=== PATIENT | male | born 1935 | race Caucasian/White ===

== ENCOUNTER 2017-02-17 10:30 | Emergency (ER) | payer MEDICARE, OTHER ==
--- NOTE | 2017-02-17 12:31 | XRAY Preliminary Report ---
Exam: XR Thoracic Spine 2 View IMPRESSION: Degenerative changes. No acute disease. [facility] SITE ID: [id number]
--- NOTE | 2017-02-17 12:33 | XRAY Report ---
EXAM: THORACIC SPINE RADIOGRAPHY EXAM DATE: 02/17/2017 12:13 PM. CLINICAL HISTORY: Thoracic back pain after falling. COMPARISON: None. TECHNIQUE: 2 views. FINDINGS: Alignment: Minimal spinal curvature on frontal view. No listhesis. Bones: Osteopenia. No definite fracture or other bone lesion. Status post median sternotomy. Disks: Generalized disk space narrowing through the mid and lower thoracic levels with marginal osteo phytes. Soft Tissues: Calcified granuloma in left lung base. The visualized lungs and cardiomediastinal silho uette are otherwise unremarkable. IMPRESSION: Degenerative changes. No acute disease. [facility] Referring Provider Line: [phone] SITE ID: [id number]
--- NOTE | 2017-02-17 12:48 | ED Physician Documentation ---
PD HPI Fall - Stated complaint Stated Complaint: GLF/LEG AND BACK PX - Chief complaint Chief Complaint: General - History obtained from History obtained from: Patient - History of Present Illness Mechanism of injury: Tripped, Lost balance Fall distance: Standing position Where injury occurred: Home Quality of pain: Pain Worsens with: Movement Similar symptoms before: Has not had sx before - Additional information Additional information: The patient is an 81-year-old male who presents with back pain that started 2 days ago after he fell. He was carrying a concrete block when he stumbled causing his fall. He landed on to concrete sidewalk, impacting his right thigh. He denies hitting his head. He denies headache, neck pain, or hip pain. His pain is worse with movement. He denies history of similar symptoms in the past. His medications include Plavix. Review of Systems Constitutional: denies: Fever Ears: denies: Tinnitus/ringing Nose: denies: Congestion Cardiac: denies: Chest pain / pressure Respiratory: denies: Dyspnea, Cough GI: denies: Abdominal Pain, Nausea, Vomiting : denies: Dysuria Skin: reports: Other (Bruising right thigh.). denies: Rash Musculoskeletal: reports: Back pain. denies: Neck pain, Joint pain Neurologic: denies: Focal weakness, Numbness, Headache, Head injury PD PAST MEDICAL HISTORY - Past Medical History Cardiovascular: Coronary artery disease, [place], Other Respiratory: Asthma, Pneumonia Neuro: CVA Endocrine/Autoimmune: None GI: Colon polyps : Benign prostate hypertrophy HEENT: None Psych: Anxiety, Other Musculoskeletal: Osteoarthritis Derm: None, Other - Past Surgical History Past Surgical History: Yes General: Appendectomy, Colonoscopy Cardiovascular: CABG HEENT: Tonsil/Adenoidectomy Derm: Skin cancer surgery - Present Medications Home Medications: Ambulatory Orders Medication Instructions Recorded Confirmed Aspirin 325 mg PO DAILY 12/17/14 02/17/17 Cholecalciferol (Vitamin D3) 1,000 unit PO DAILY 12/17/14 02/17/17 [Vitamin D] Clopidogrel [Plavix] 75 mg PO DAILY 12/17/14 02/17/17 Simvastatin 40 mg PO DAILY 12/17/14 02/17/17 HYDROcod/ACETAM 5/325 [Vicodin 1 ea PO Q6H PRN #20 tablet 02/17/17 5/325] - Allergies Allergies/Adverse Reactions: Allergies Allergy/AdvReac Type Severity Reaction Status Date / Time OTC Cold Medicine AdvReac Severe Hallucinati Uncoded 02/17/17 10:38 ons Topical Cortisone AdvReac Intermediate Skin Uncoded 02/17/17 10:38 sensitivity - Social History Does the pt smoke?: No Smoking Status: Never smoker Does the pt drink ETOH?: Yes ETOH Use: Wine Does the pt have substance abuse?: No PD ED PE NORMAL - Vitals Vital signs reviewed: Yes (Borderline hypertension initially.) - General General: Alert and oriented X 3, Well developed/nourished - HEENT HEENT: Atraumatic, EOMI, Pharynx benign - Neck Neck: No bony TTP, No adenopathy, No JVD - Cardiac Cardiac: RRR - Respiratory Respiratory: No respiratory distress, Clear bilaterally - Abdomen Abdomen: Soft, Non tender - Back Back: No CVA TTP, Other (There is tenderness to palpation of the right lower posterior thoracic region, including lower posterior chest wall and parathoracic musculature. There is mild tenderness to palpation over the lower thoracic spinous processes. There is no ecchymosis or break in the integument.) - Derm Derm: No rash - Extremities Extremities: No edema, No calf tenderness / cord, Other (There is a large area of ecchymosis on the lateral aspect of the right mid thigh. There is no break in the integument, and no discomfort with range of motion of the knee or hip, including internal and external rotation of the hip. Distal neurovascular is intact. There is also small area of ecchymosis of the proximal left forearm, without bony tenderness or discomfort with supination or pronation of the forearm.) - Neuro Neuro: Alert and oriented X 3, No motor deficit, No sensory deficit, Normal speech Results - Vitals Vitals: Oxygen O2 Source [] Room air O2 Source [] Room air O2 Source Room air - Rads (name of study) Thoracic Spine xrays Radiology: Prelim report reviewed, EMP read contemporaneously, See rad report ( Degenerative changes. No acute disease.) PD MEDICAL DECISION MAKING - ED course Complexity details: reviewed results, re-evaluated patient, considered differential, d/w patient, d/w family ED course: The patient's presentation is significant for contusions to his back, right thigh, and left forearm, caused by trip and fall. There is no evidence of thoracic spine fracture on x-ray examination. I discussed with him and his the expected course of injury, symptomatic treatment and outpatient follow- up, as well as potentially worrisome signs or symptoms that should prompt reevaluation in the emergency department. He is being discharged with a prescription for Vicodin, 20 tablets. Departure - Departure Disposition: 01 Home, Self Care Clinical Impression: Contusion of thoracic wall Qualifiers: Encounter type: initial encounter Contusion of thoracic wall detail: back wall of thorax Laterality: right Qualified Code(s): S20.221A - Contusion of right back wall of thorax, initial encounter Contusion of right thigh Qualifiers: Encounter type: initial encounter Qualified Code(s): S70.11XA - Contusion of right thigh, initial encounter Contusion of left forearm Qualifiers: Encounter type: initial encounter Qualified Code(s): S50.12XA - Contusion of left forearm, initial encounter Condition: Stable Instructions: ED Contusion Soft Tissue Follow-Up: Amanda Echevarria PA [Primary Care Provider] - Prescriptions: HYDROcod/ACETAM 5/325 [Vicodin 5/325] 1 ea PO Q6H PRN #20 tablet PRN Reason: Pain Comments: Apply icepack to the sore areas intermittently for the next 3 days. You can use low-dose Vicodin, one half to one tablet, every 6-8 hours if needed for pain. If not using Vicodin you can use Tylenol for pain, but avoid using additional Tylenol if using Vicodin, because Vicodin has Tylenol in it. Follow up with your primary physician within one week. Call to schedule an appointment. Return to the emergency department if you develop increasing pain, difficulty breathing, or otherwise worsening symptoms. Discharge Date/Time: 02/17/17 13:00
[2017-02-17 13:02] VITALS: BP 154/69
== END 2017-02-17 13:00 | disposition home or self-care (01) ==
LOC: ED 10:30
DX: S20.221A Contusion of right back wall of thorax, initial encounter (principal); S70.11XA Contusion of right thigh, initial encounter; S50.12XA Contusion of left forearm, initial encounter; W01.0XXA Fall on same level from slipping, tripping and stumbling without subsequent striking against object, initial encounter; Y93.89 Activity, other specified; Y92.009 Unspecified place in unspecified non-institutional (private) residence as the place of occurrence of the external cause; I25.10 Atherosclerotic heart disease of native coronary artery without angina pectoris; I25.2 Old myocardial infarction; Z95.1 Presence of aortocoronary bypass graft; Z86.73 Personal history of transient ischemic attack (TIA), and cerebral infarction without residual deficits; Z79.02 Long term (current) use of antithrombotics/antiplatelets; Z79.82 Long term (current) use of aspirin
CPT/HCPCS: 72070; 99283

== ENCOUNTER 2018-01-26 10:07 | Outpatient (CLI) | payer MEDICARE, OTHER ==
--- NOTE | 2018-01-26 12:06 | XRAY Report ---
TWO VIEW CHEST: 01/26/2018 CLINICAL INDICATION: Cough, upper respiratory infection. FINDINGS: Frontal and lateral views of the chest demonstrate changes of previous cardiac surgery. The cardiac silhouette is not enlarged. Calcifications of old granulomatous disease are noted. Linear scarring or atelectasis is present in the mid lungs. No effusion or pneumothorax is seen. IMPRESSION: POSTOPERATIVE CHANGES. NO EVIDENCE OF ACUTE CARDIOPULMONARY DISEASE. TD: 01/26/2018 12:04
== END 2018-01-26 10:08 | disposition home or self-care (01) ==
LOC: DI.S 10:07
PROVIDERS: ATTEND Nurse Practitioner Family
DX: R05 Cough (principal)
CPT/HCPCS: 71046

== ENCOUNTER 2018-03-30 08:37 | Day surgery (SDC) | payer MEDICARE, OTHER ==
[~2018-03-30 08:37] MED LIST: BRIMONIDINE 0.2% OPHTH DROPS 5 ML ONE; BSS/LIDOCAINE/EPINEPHRINE 1 ML SYRINGE ONE; EPINEPHrine 1 MG/ML AMP ONE; TIMOLOL 0.5% OPHTH DROPS ONE; TRIAMCIN/MOXIFLOX OPHTHALMIC 0.6 ML VIAL IO ONE; VANCOMYCIN OPHTHALMI 8MG/0.8ML 8 MG/0.8 ML SYRINGE IO ONE
[2018-03-30] MEDS ORDERED: BRIMONIDINE 0.2% OPHTH DROPS 5 ML OPTH ONE (09:00)
[2018-03-30] MEDS ORDERED: EPINEPHrine 1 MG/ML AMP IVP ONE (09:00)
[2018-03-30] MEDS ORDERED: CHONDR SULF/HYALURONATE SYRINGE IO ONE (09:00)
[2018-03-30] MEDS ORDERED: TRIAMCIN/MOXIFLOX/VANCO 1 ML VIAL IO ONE (09:00)
[2018-03-30] MEDS ORDERED: TIMOLOL 0.5% OPHTH DROPS OPTH ONE (09:00)
[2018-03-30] MEDS ORDERED: BSS/LIDOCAINE/EPINEPHRINE 1 ML SYRINGE IO ONE (09:00)
[2018-03-30] MEDS ORDERED: PROPARACAINE 0.5% OPHTH DROPS 15 ML LEFTEYE ONE ×2 (09:00→09:15)
[2018-03-30] MEDS ORDERED: LACTATED RINGERS 500 ML IV ONE (09:03)
[2018-03-30] MEDS ORDERED: KETOROLAC 0.45% OPHTH DROPS LEFTEYE ONE (09:15)
[2018-03-30] MEDS ORDERED: CYCLOPENTOLATE 1% OPHTH DROPS 2 ML LEFTEYE ONE (09:15)
[2018-03-30] MEDS ORDERED: PHENYLEPHRINE 2.5% OPHTH 2 ML DROPS LEFTEYE ONE (09:15)
[2018-03-30] MEDS ORDERED: MIDAZOLAM 2 MG/2 ML VIAL IVP ONE (10:00)
[2018-03-30 10:15] VITALS: BP 117/58
--- NOTE | 2018-03-30 11:36 | OPERATIVE REPORT ---
DATE OF SERVICE: 03/30/2018 Physician: Carlos Guillory MD DATE OF SURGERY: 03/30/2018 PREOPERATIVE DIAGNOSIS: Visually significant cataract, left eye. This was his first cataract surgery. POSTOPERATIVE DIAGNOSIS: Visually significant cataract, left eye. This was his first cataract surgery. NAME OF PROCEDURE: Phacoemulsification with posterior chamber intraocular lens implant, left eye. SURGEON: Carlos Guillory MD ANESTHESIA: Monitored anesthesia care. COMPLICATIONS: None. OPERATIVE INDICATIONS: This is an 82-year-old man with progressive vision loss in the left eye due to 2-3+ nuclear sclerotic cataract. Best corrected visual acuity was 20/50 with glare to 20/400 in the left eye. Indications for surgery are overall decrease in vision, difficulty seeing words on a computer screen, difficulty reading, difficulty seeing words and closed captions, game scores on TV, difficulty seeing street signs, difficulty driving in low light or at night. He was consented at length concerning risks and benefits of cataract surgery, and after, he expressed a desire to proceed with surgery. OPERATIVE PROCEDURE: The patient was taken into OR #3 and placed under monitored anesthesia care. Surgical timeout was conducted confirming correct patient, correct procedure, and correct surgical site. He was given topical anesthesia and prepped and draped in usual sterile fashion. The eye was entered at the 6 and 3 o'clock positions. Intracameral Shugarcaine was injected into the anterior chamber, followed by Viscoat. A continuous-tear curvilinear capsulorrhexis was performed. The nucleus was hydrodissected and phacoemulsified. The cortex was evacuated using automated infusion and aspiration. Provisc was injected in the capsular bag, and a 12.5 diopter intraocular lens was inserted in the bag. Approximately 0.9 mL of a mixture of triamcinolone, moxifloxacin and vancomycin was injected subconjunctivally in the superior quadrant for infection and inflammation prophylaxis. I and A was used to evacuate the viscoelastic material. The eye was inflated to physiologic pressure with balanced salt solution, and found to be watertight. The patient was taken from the operating room in good condition and given postop instructions. TD: 03/30/2018 10:19
== END 2018-03-30 08:38 | disposition home or self-care (01) ==
LOC: SDS 08:37
PROVIDERS: ATTEND Ophthalmology
PROC: 08RK3JZ Replacement of Left Lens with Synthetic Substitute, Percutaneous Approach (ICD-10-PCS; principal; 2018-03-30 09:30)
DX: H25.12 Age-related nuclear cataract, left eye (principal); I10 Essential (primary) hypertension; Z79.02 Long term (current) use of antithrombotics/antiplatelets; Z79.82 Long term (current) use of aspirin
CPT/HCPCS: 66984; A9270; V2632

== ENCOUNTER 2018-05-04 08:38 | Day surgery (SDC) | payer MEDICARE, OTHER ==
[~2018-05-04 08:38] MED LIST changes: +CYCLOPENTOLATE 1% OPHTH DROPS 2 ML ONE; +KETOROLAC 0.45% OPHTH DROPS ONE; +PHENYLEPHRINE 2.5% OPHTH 2 ML DROPS ONE; +PROPARACAINE 0.5% OPHTH DROPS 15 ML ONE
[2018-05-04] MEDS ORDERED: KETOROLAC 0.45% OPHTH DROPS LEFTEYE ONE (09:33)
[2018-05-04] MEDS ORDERED: PROPARACAINE 0.5% OPHTH DROPS 15 ML LEFTEYE ONE (09:33)
[2018-05-04] MEDS ORDERED: CYCLOPENTOLATE 1% OPHTH DROPS 2 ML LEFTEYE ONE (09:33)
[2018-05-04] MEDS ORDERED: PHENYLEPHRINE 2.5% OPHTH 2 ML DROPS LEFTEYE ONE (09:33)
--- NOTE | 2018-05-04 09:38 | ANESTHESIA ---
Pre-Anesthesia VS, & Labs - Diagnosis Right nuclear sclerotic cataract - Procedure Right eye extraction of cataract with intraocular lens implant Vital Signs: Temp Pulse Resp BP Pulse Ox 36.0 C L 16 115/90 H 100 05/04/18 09:26 05/04/18 09:26 05/04/18 09:26 05/04/18 09:26 pulse 56 Height 5 ft 10 in Weight (kg) 76.2 kg Body Mass Index 23.6 - NPO >8 hours - Is Patient ?: No Home Medications and Allergies Home Medications: Ambulatory Orders Medication Instructions Recorded Confirmed Aspirin 325 mg PO DAILY 12/17/14 05/03/18 Cholecalciferol (Vitamin D3) 1,000 unit PO DAILY 12/17/14 05/03/18 [Vitamin D] Clopidogrel [Plavix] 75 mg PO DAILY 12/17/14 05/03/18 Simvastatin 40 mg PO DAILY 12/17/14 05/03/18 Allergies/Adverse Reactions: Allergies Allergy/AdvReac Type Severity Reaction Status Date / Time No Known Drug Allergies Allergy Verified 03/29/18 14:14 Anes History & Medical History - Anesthetic History Anesthesia Complications: reports: No previous complications Family history of Anesthesia Complications: Denies Family history of Malignant Hyperthermia: Denies - Airway/Dental Dental: Poor dentition Neck Mobility: Normal Mallampati classification: IV Thyromental Distance: 4-6 cm - Medical History Cardiovascular: reports: Coronary artery disease, Arrhythmia Pulmonary: reports: None Gastrointestinal: reports: None Urinary: reports: None Neuro: reports: CVA (poor balance) Musculoskeletal: reports: Osteoarthritis Endocrine/Autoimmune: reports: None Blood Disorders: reports: None Skin: reports: None Smoking Status: Former smoker (quit 45 years ago) - Surgical History General: Appendectomy, Other (jose hernia repair) Eyes Ears Nose Throat (EENT): Tonsil/Adenoidectomy Cardiothoracic: CABG Urologic: Prostatic surgery Dermatologic: Skin cancer surgery Exam General: Alert, Oriented x3, Cooperative, No acute distress Plan Anesthesia Type: MAC Consent for Operative Procedure(s) Verified and Reviewed: Yes Code Status: Attempt Resuscitation ASA classification: 3-Severe systemic disease Is this case an emergency?: No
[2018-05-04] MEDS ORDERED: LACTATED RINGERS 500 ML IV ONE ×2 (09:42→10:16)
[2018-05-04] MEDS ORDERED: BRIMONIDINE 0.2% OPHTH DROPS 5 ML OPTH ONE (10:00)
[2018-05-04] MEDS ORDERED: MIDAZOLAM 2 MG/2 ML VIAL IVP ONE (10:01)
[2018-05-04] MEDS ORDERED: EPINEPHrine 1 MG/ML AMP IR ONE (10:01)
[2018-05-04] MEDS ORDERED: CHONDR SULF/HYALURONATE SYRINGE IO ONE (10:01)
[2018-05-04] MEDS ORDERED: BSS/LIDOCAINE/EPINEPHRINE 1 ML SYRINGE IO ONE (10:02)
[2018-05-04] MEDS ORDERED: PROPARACAINE 0.5% OPHTH DROPS 15 ML RIGHTEYE ONE (10:02)
[2018-05-04] MEDS ORDERED: TIMOLOL 0.5% OPHTH DROPS OPTH ONE (10:02)
[2018-05-04 10:31] VITALS: BP 112/50
--- NOTE | 2018-05-04 10:59 | OPERATIVE REPORT ---
DATE OF SERVICE: 05/04/2018 Physician: Carlos Guillory MD PREOPERATIVE DIAGNOSIS: Visually significant cataract, right eye. Cataract surgery was performed on the left eye on 30 March 2018. POSTOPERATIVE DIAGNOSIS: Visually significant cataract, right eye. Cataract surgery was performed on the left eye on 30 March 2018. PROCEDURE: Phacoemulsification with posterior chamber intraocular lens implant, right eye. SURGEON: Carlos Guillory MD ANESTHESIA: Monitored anesthesia care. COMPLICATIONS: None. OPERATIVE INDICATIONS: This is an 82-year-old man with progressive vision loss in the right eye due to 2-3+ nuclear sclerotic cataract. Best corrected visual acuity was 20/25 with glare to 20/400 in the right eye. INDICATIONS FOR SURGERY: Overall decrease in vision, difficulty seeing words on a computer screen, difficulty seeing words, closed caption, or game scores on TV; difficulty seeing street signs, difficulty seeing in low light or at night. He was consented at length concerning risks and benefits of cataract surgery, after which he expressed a desire to proceed with surgery. OPERATIVE PROCEDURE: The patient was taken to OR #3 and placed under monitored anesthesia care. A surgical timeout was conducted confirming the correct patient, correct procedure, and correct surgical site. He was given topical anesthesia and then prepped and draped in the usual sterile fashion. The eye was entered at the 12 and 9 o'clock positions. Intracameral Shugarcaine was injected into the anterior chamber, followed by Viscoat. A continuous-tear curvilinear capsulorrhexis was performed. Nucleus was hydrodissected and phacoemulsified. Cortex was evacuated using automated infusion and aspiration. Provisc was injected in the capsular bag, and a 16.0 diopter intraocular lens was inserted into the bag. Approximately 0.9 mL of a mixture of triamcinolone, moxifloxacin, and vancomycin was injected subconjunctivally in the superior quadrant for infection and inflammation prophylaxis. I and A was used to evacuate the viscoelastic materials. The eye inflated to physiologic pressure using balanced salt solution and found to be watertight. The patient was taken from the operating room in good condition and given postop instructions. TD: 05/04/2018 10:20
== END 2018-05-04 08:39 | disposition home or self-care (01) ==
LOC: SDS 08:38
PROVIDERS: ATTEND Ophthalmology
PROC: 08RJ3JZ Replacement of Right Lens with Synthetic Substitute, Percutaneous Approach (ICD-10-PCS; principal; 2018-05-04 09:30)
DX: H25.11 Age-related nuclear cataract, right eye (principal); I10 Essential (primary) hypertension; Z86.73 Personal history of transient ischemic attack (TIA), and cerebral infarction without residual deficits; Z87.891 Personal history of nicotine dependence; I25.10 Atherosclerotic heart disease of native coronary artery without angina pectoris; Z95.1 Presence of aortocoronary bypass graft; I49.9 Cardiac arrhythmia, unspecified
CPT/HCPCS: 66984; A9270; J3490; V2632

== ENCOUNTER 2018-08-04 15:22 | Outpatient (CLI) | payer MEDICARE, OTHER ==
--- NOTE | 2018-08-04 16:02 | XRAY Report ---
Reason: HYPER FLEXION INJURY Procedure Date: 08/04/2018 Accession Number: [id number] / [id number] Procedure: XR - Knee 3 View LT CPT Code: FULL RESULT: EXAM: LEFT KNEE RADIOGRAPHY EXAM DATE: 08/04/2018 03:56 PM. CLINICAL HISTORY: HYPER FLEXION INJURY. Pain COMPARISON: None. TECHNIQUE: 3 views. FINDINGS: Bones: No fractures or bone lesions. Quadriceps tendon insertion calcification. Joints: Medial and lateral meniscal chondrocalcinosis. No effusion. No subluxations. Minimal patellar articular surface spurring. Soft Tissues: Surgical clips. IMPRESSION: Mild degenerative change left knee radiography without superimposed acute findings. [facility]
== END 2018-08-04 15:23 | disposition home or self-care (01) ==
LOC: DI 15:22
PROVIDERS: ATTEND Family Medicine
DX: S89.82XA Other specified injuries of left lower leg, initial encounter (principal); M17.11 Unilateral primary osteoarthritis, right knee

== ENCOUNTER 2022-10-10 10:22 | Outpatient (CLI) | payer MEDICARE | END 2022-10-10 10:23 | disposition EMS.NT | LOC: EMS 10:22 | DX: R53.83 Other fatigue (principal); R53.1 Weakness ==

== ENCOUNTER 2023-06-04 10:50 | Emergency (ER) | payer MEDICARE, OTHER ==
--- NOTE | 2023-06-04 11:16 | ED Physician Documentation ---
PD HPI Fall - Stated complaint Stated Complaint: GLF - Chief complaint Chief Complaint: Trauma Ch/Bk - History obtained from History obtained from: Patient - History of Present Illness Mechanism of injury: Syncope, Unknown Fall distance: Standing position Where injury occurred: Other (parking lot, waiting for his ride to arrive) Timing - onset: How many days ago (3) Injury(ies) location: Head, Chest (left posterolateral), Back (He is not sure of the reason for falling/fainting. He was in the parking lot waiting for a ride to arrive. He was next to where being on the ground. He had some pain in the back of his head. Some in his right lumbar area. Continued with back spasms and pain and noted bruising develop.) Quality of pain: Aching Associated symptoms: No: AMS, Neck pain, Weakness, Paresthesias Symptoms improve with: Rest Worsens with: Movement (spasms and pain in scapular and lumbar back areas.) Contributing factors: Anticoagulated (aspirin and plavix antiplatelet agents.). No: Intoxicated Similar symptoms before: Has not had sx before Recently seen: Not recently seen Review of Systems Constitutional: denies: Fever, Chills Nose: denies: Rhinorrhea / runny nose, Congestion Throat: denies: Sore throat Cardiac: denies: Palpitations, Pedal edema, Calf pain Respiratory: denies: Dyspnea, Cough Skin: reports: Other (bruising noted right flank/low back) Musculoskeletal: reports: Back pain. denies: Neck pain Neurologic: reports: Syncope (just the episode few days ago. Has not had lightheaded episodes otherwise.). denies: Focal weakness, Numbness Endocrine: denies: Weight loss PD PAST MEDICAL HISTORY - Past Medical History Cardiovascular: Coronary artery disease, Arrhythmia Respiratory: None Neuro: CVA (poor balance) Endocrine/Autoimmune: None GI: None : None HEENT: Chronic vision loss Psych: Anxiety Musculoskeletal: Osteoarthritis Derm: None - Past Surgical History Past Surgical History: Yes General: Appendectomy, Other (jose hernia repair) Cardiovascular: CABG HEENT: Tonsil/Adenoidectomy Derm: Skin cancer surgery - Present Medications Home Medications: Ambulatory Orders Medication Instructions Recorded Confirmed Aspirin 0.5 tab PO DAILY 12/17/14 06/04/23 Cholecalciferol (Vitamin D3) 1,000 unit PO DAILY 12/17/14 06/04/23 [Vitamin D] Clopidogrel [Plavix] 75 mg PO DAILY 12/17/14 06/04/23 Simvastatin 40 mg PO DAILY 12/17/14 06/04/23 HYDROcod/ACETAM 5/325 [Pinon 5/325] 1 ea PO Q6H PRN #20 tablet 06/04/23 Lidocaine Patch 5% [Lidoderm Patch] 1 patch TOP DAILY PRN #10 patch 06/04/23 methocarbamoL [Robaxin] 500 mg PO Q8H PRN #20 tablet 06/04/23 - Allergies Allergies/Adverse Reactions: Allergies Allergy/AdvReac Type Severity Reaction Status Date / Time No Known Drug Allergies Allergy Verified 06/04/23 11:11 - Social History Does the pt smoke?: No Smoking Status: Former smoker (quit 45 years ago) Does the pt drink ETOH?: Yes Does the pt have substance abuse?: No PD ED PE NORMAL - Vitals Vital signs reviewed: Yes - General General: Alert and oriented X 3, Well developed/nourished, Other (appears in pain with low back and upper back movements. ) - HEENT HEENT: Other (mild tender back of head) - Neck Neck: Supple, no meningeal sign, No bony TTP, No adenopathy - Cardiac Cardiac: No murmur. No: RRR (regular with occasional pause/skip, bradycardic 38-60 ranging. ) - Respiratory Respiratory: No respiratory distress, Clear bilaterally - Abdomen Abdomen: Soft, Non tender - Back Back: No CVA TTP, Other (some tender mid scapular area back, Also noted is some purple bruising noted in the right iliac crest and lower lumbar area.) - Derm Derm: Normal color, Warm and dry - Extremities Extremities: Normal ROM s pain, No edema, No calf tenderness / cord - Neuro Neuro: Alert and oriented X 3, No motor deficit, Normal speech Results - Vitals Vitals: Vital Signs - 24 hr 06/04/23 06/04/23 06/04/23 11:01 13:56 15:17 Temperature 36.4 C L Heart Rate 57 L 51 L 42 L Respiratory 13 16 12 Rate Blood Pressure 134/47 H 162/62 H 139/108 H O2 Saturation 98 99 96 If not protocol : Oxygen Flow, liters/minute 06/04/23 06/04/23 06/04/23 18:44 18:45 18:50 Temperature Heart Rate 42 L 38 L 40 L Respiratory 18 Rate Blood Pressure 151/48 H O2 Saturation 95 84 L 91 L If not protocol 2 : Oxygen Flow, liters/minute 06/04/23 06/04/23 06/04/23 19:10 19:17 19:27 Temperature Heart Rate 35 L 34 L 36 L Respiratory 15 Rate Blood Pressure 143/54 H O2 Saturation 92 If not protocol 2 : Oxygen Flow, liters/minute 06/04/23 06/04/23 06/04/23 19:37 20:12 20:42 Temperature Heart Rate 43 L 46 L 43 L Respiratory 15 16 15 Rate Blood Pressure 147/55 H 153/63 H 160/56 H O2 Saturation 94 95 95 If not protocol 2 2 2 : Oxygen Flow, liters/minute 06/04/23 06/04/23 21:30 22:00 Temperature Heart Rate 43 L 46 L Respiratory 13 14 Rate Blood Pressure 146/53 H 156/54 H O2 Saturation 96 99 If not protocol : Oxygen Flow, liters/minute Oxygen O2 Source [] Room air O2 Source [] Room air O2 Source Room air - EKG (time done) 12:28 EKG releavant findings:: EKG personally interpreted by author of this note. Relevant findings are: Rate: Rate (enter#) (46) Rhythm: Sinus bradycardia [place]: Normal Intervals: Prolonged MS, 2nd degree AVB type 2 Ischemia: Normal ST segments. No: ST elevation c/w ischemia, ST depression Compare to prior EKG: Old EKG unavailable - Labs Labs: Laboratory Tests 06/04/23 06/04/23 06/04/23 11:10 11:10 11:10 WBC 8.6 RBC 4.36 L Hgb 13.0 L Hct 39.6 L MCV 90.8 MCH 29.8 MCHC 32.8 RDW 13.2 Plt Count 301 MPV 9.3 Neut # (Auto) 6.1 Lymph # (Auto) 1.4 L [place] # (Auto) 0.9 Eos # (Auto) 0.2 Baso # (Auto) 0.0 Absolute Nucleated RBC 0.00 Nucleated RBC % 0.0 Sodium 137 Potassium 4.0 Chloride 103 Carbon Dioxide 27 Anion Gap 7.0 BUN 14 Creatinine 0.8 Estimated GFR (MDRD) 91 Glucose 151 H Calcium 9.5 Magnesium 1.9 Total Bilirubin 0.8 AST 20 ALT 15 Alkaline Phosphatase 83 Troponin I High Sens 10.8 B-Natriuretic Peptide Total Protein 6.9 Albumin 4.2 Globulin 2.7 Albumin/Globulin Ratio 1.6 Lipase 32 TSH 06/04/23 06/04/23 11:10 11:10 WBC RBC Hgb Hct MCV MCH MCHC RDW Plt Count MPV Neut # (Auto) Lymph # (Auto) [place] # (Auto) Eos # (Auto) Baso # (Auto) Absolute Nucleated RBC Nucleated RBC % Sodium Potassium Chloride Carbon Dioxide Anion Gap BUN Creatinine Estimated GFR (MDRD) Glucose Calcium Magnesium Total Bilirubin AST ALT Alkaline Phosphatase Troponin I High Sens B-Natriuretic Peptide 303 H Total Protein Albumin Globulin Albumin/Globulin Ratio Lipase TSH 1.32 - Rads (name of study) head CT Relevant Findings:: Prelim report reviewed (no acute ICH nor acute process), EMP independent interpretation of test chest CT Relevant Findings:: Prelim report reviewed, Discussed with rads (T8 compression fracture without notable displacement. Incidental 4 cm mass in the right upper lobe.), EMP independent interpretation of test abd/pelvic CT Relevant Findings:: Prelim report reviewed (No acute injury noted. No acute organ injury or abnormality.), EMP independent interpretation of test (In the soft tissue of the right lower back is some inflammatory changes without any hematoma nor fluid collection. This is consistent with his contused area.) PD Medical Decision Making - ED course Complexity details: reviewed results, re-evaluated patient (The patient remains feeling well. Blood pressure is adequate. His heart rate has trended down to now ranging from 35-50. He still is without any symptoms while lying sitting up on the cart. However the downward trend is concerning. Pacer pads were placed. Dopamine low dose for HR, up to 45-55.), considered differential (Recent apparent syncope several days ago with injury of contusion in the right lumbar area and a T8 compression fracture. We can treat these with pain medications. However he is in a second-degree type II heart block with relative bradycardia which is concerning in the context of his recent syncop), d/w patient, d/w security consultant (Dr. Gillespie, Cardiology at [facility], Who felt the patient should be treated with cardiac evaluation and likely pacemaker. Waiting on bed availability. Apparently there are beds available and will need to talk to the hospitalist.) ED course: he has varying heart rate initially mainly 50s down to 48, but then was slower dips down to 35 at times. He felt okay with it. Telemetry strips and repeat ECG showing more clearly Mobitz 2 heart block. I presume this relates to the recent syncopal episode 3 days ago. He has not had repeated syncope/near syncope since. However clearly in heart block with recent syncope. Not on meds to cause it. check lytes and troponin. Will need to consult cardiology for consideration of pacemaker. Pt advised and is agreeable. Heart rate was generally slower range from 33-45. BP still adequate. [place] was concerning of slow trend. So I started dopamine drip low dose to titrate up for stimulated HR of above 45. Dopamine suggested, as well as epi or dobutamine, in UpToDate reference on heart block treatment. Ay vhange pf shift, still pending bed avaialbe at [facility] (they anticipated discharges this afternoon). Cardiology already consulted and deferred to hospitalist. - Critical Care Time(min): 50 Comments: 2nd degree heart block. Evaluate rhythm. Placed on dopaimine drip for improved heart rate. Needed close monitoring. Pacer pads on patient ready if use needed. Departure - Departure Disposition: 02 Transfer Acute Care Hosp Clinical Impression: Mass of right lung, Cardiac syncope, Mobitz (type) II atrioventricular block Thoracic compression fracture Qualifiers: Encounter type: initial encounter Thoracic vertebra fracture level: T8 Qualified Code(s): S22.060A - Wedge compression fracture of T7-T8 vertebra, init ial encounter for closed fracture Lumbar contusion Qualifiers: Encounter type: initial encounter Qualified Code(s): S30.0XXA - Contusion of lower back and pelvis, initial encounter Condition: Stable Record reviewed to determine appropriate education?: Yes Instructions: ED Fx Comp Vertebral Prescriptions: Lidocaine Patch 5% [Lidoderm Patch] 1 patch TOP DAILY PRN #10 patch PRN Reason: pain HYDROcod/ACETAM 5/325 [Pinon 5/325] 1 ea PO Q6H PRN #20 tablet PRN Reason: Pain methocarbamoL [Robaxin] 500 mg PO Q8H PRN #20 tablet PRN Reason: Spasms Forms: PCP List
[2023-06-04] MEDS ORDERED: iohexoL-300 100 ML VIAL ONE (11:42)
[2023-06-04 11:47] LABS: BASOPHILS % (AUTO) 0.5 %; EOSINOPHILS # (AUTO) 0.2 10^3/uL (0.0-0.7); EOSINOPHILS % (AUTO) 1.7 %; HCT - HEMATOCRIT 39.6 % (42.0-52.0); LYMPHOCYTES # (AUTO) 1.4 10^3/uL (1.5-3.5); MEAN CORPUSCULAR HEMOGLOBIN 29.8 pg (27.0-31.0); MEAN CORPUSCULAR HGB CONC 32.8 g/dL (32.0-36.0); MEAN CORPUSCULAR VOLUME 90.8 fL (80.0-94.0); MEAN PLATELET VOLUME 9.3 fL (7.4-11.4); MONOCYTES # (AUTO) 0.9 10^3/uL (0.0-1.0); MONOCYTES % (AUTO) 9.9 %; NEUTROPHILS # (AUTO) 6.1 10^3/uL (1.5-6.6); NEUTROPHILS % (AUTO) 71.4 %; PLT - PLATELET COUNT 301 10^3/uL (130-450); RED BLOOD COUNT 4.36 10^6/uL (4.70-6.10); RED CELL DISTRIBUTION WIDTH 13.2 % (12.0-15.0); WHITE BLOOD COUNT 8.6 x10^3/uL (4.8-10.8)
--- OUTSIDE RECORDS SUMMARY | 2023-06-04 11:48 | EXTERNAL MEDICAL SUMMARY RPT | Continuity of Care Document ---
Author Name Unknown Address [address] [place] [address] Phone Organization [place] Address [address] [place] [address] Phone Care Team Providers Care Manager Appointment Name Role Phone Unavailable Unavailable Unavailable Afua Azevedo Pa-C Unavailable Unavailable Medications date description facility 2023-03-18 00:00 [facility]ol [facility] [place] 2023-03-21 00:00 atenolol [facility] [place] 2023-03-17 00:00 ASPIRIN [facility] [place] 2023-03-18 00:00 ASPIRIN [facility] [place] 2023-03-21 00:00 ASPIRIN [facility] [place] 2023-03-17 00:00 amoxicillin-pot clavulanate [facility] [place] 2023-03-17 00:00 amoxicillin-pot clavulanate [facility] [place] 2023-03-17 00:00 ASPIRIN [facility] [place] 2023-03-18 00:00 ASPIRIN [facility] [place] 2023-03-21 00:00 ASPIRIN [facility] [place] 2023-03-18 00:00 aspirin [facility] [place] 2023-03-21 00:00 aspirin [facility] [place] 2023-03-18 00:00 atenolol [facility] [place] 2023-03-21 00:00 atenolol [facility] [place] 2023-03-18 00:00 simvastatin [facility] [place] 2023-03-21 00:00 simvastatin [facility] [place] 2023-03-18 00:00 atenolol [facility] [place] 2023-03-21 00:00 atenolol [facility] [place] 2023-03-17 00:00 ASPIRIN [facility] [place] 2023-03-18 00:00 ASPIRIN [facility] [place] 2023-03-21 00:00 ASPIRIN [facility] [place] 2023-03-18 00:00 aspirin [facility] [place] 2023-03-21 00:00 aspirin [facility] [place] 2023-03-18 00:00 clopidogrel [facility] [place] 2023-03-21 00:00 clopidogrel [facility] [place] 2023-03-18 00:00 atenolol [facility] [place] 2023-03-21 00:00 atenolol [facility] [place] 2023-03-18 00:00 escitalopram oxalate [facility] [place] 2023-03-21 00:00 escitalopram oxalate [facility] [place] 2023-03-18 00:00 simvastatin [facility] [place] 2023-03-21 00:00 simvastatin [facility] [place] 2023-03-18 00:00 aspirin [facility] [place] 2023-03-21 00:00 aspirin [facility] [place] 2023-03-18 00:00 clopidogrel [facility] [place] 2023-03-21 00:00 clopidogrel [facility] [place] 2023-03-17 00:00 amoxicillin-pot clavulanate [facility] [place] 2023-03-18 00:00 simvastatin [facility] [place] 2023-03-21 00:00 simvastatin [facility] [place] 2023-03-18 00:00 escitalopram oxalate [facility] [place] 2023-03-21 00:00 escitalopram oxalate [facility] [place] 2023-03-18 00:00 clopidogrel [facility] [place] 2023-03-21 00:00 clopidogrel [facility] [place] 2023-03-17 00:00 ASPIRIN [facility] [place] 2023-03-18 00:00 ASPIRIN [facility] [place] 2023-03-21 00:00 ASPIRIN [facility] [place] 2023-03-18 00:00 aspirin [facility] [place] 2023-03-21 00:00 aspirin [facility] [place] 2023-03-18 00:00 simvastatin [facility] [place] 2023-03-21 00:00 simvastatin [facility] [place] 2023-03-18 00:00 escitalopram oxalate [facility] [place] 2023-03-21 00:00 escitalopram oxalate [facility] [place] 2023-03-17 00:00 amoxicillin-pot clavulanate [facility] [place] 2023-03-18 00:00 escitalopram oxalate [facility] [place] 2023-03-21 00:00 escitalopram oxalate [facility] [place] 2023-03-18 00:00 clopidogrel [facility] [place] 2023-03-21 00:00 clopidogrel [facility] [place] Problems date description facility 2023-03-17 00:00 Rectal hemorrhage [facility] [place] 2023-03-17 00:00 Acute sinusitis [facility] [place] 2023-03-17 00:00 Other and unspecifie d malignant neoplasm of skin, site unspecified [facility] [place] 2023-03-17 00:00 Asthma [facility] [place] 2023-03-17 00:00 Childhood asthma [facility] [place] 2023-03-17 00:00 Disease of liver [facility] [place] 2023-03-17 00:00 Other and unspecified hyperlipi demia [facility] [place] 2023-03-17 00:00 Conjunctivitis, unspecified [facility] [place] 2023-03-17 00:00 Coronary atheroscler osis of unspecified type of vessel, [place] or graft [facility] [place] 2023-03-17 00:00 Sinoatrial node dysfunction [facility] [place] 2023-03-17 00:00 Extrinsic asthma, unspecified [facility] [place] 2023-03-17 00:00 Asthma, unspecified [facility] [place] 2023-03-17 00:00 Sinus bradycardia [facility] [place] 2023-03-17 00:00 Coronary arteriosclerosis [facility] [place] 2023-03-17 00:00 Unilateral or unspec ified inguinal hernia, without mention of obstruction or gangrene (not specified as recurrent) [facility] [place] 2023-03-17 00:00 Hyperlipidemia [facility] [place] 2023-03-17 00:00 Hemorrhage of rectum and anus [facility] [place] 2023-03-17 00:00 Other specified disorders of li yessica [facility] [place] 2023-03-17 00:00 Hypertrophy (benign) of prostate without urinary obstruction and other lower urinary tract (LUTS) [facility] [place] 2023-03-17 00:00 Bacterial sinusitis [facility] [place] 2023-03-17 00:00 Inguinal hernia with out obstruction AND without gangrene [facility] [place] 2023-03-17 00:00 Conjunctivitis [facility] [place] 2023-03-17 00:00 Hyperlipidemia, unspecified [facility] [place] 2023-03-17 00:00 Unspecified conjunctivitis [facility] [place] 2023-03-17 00:00 Atherosclerotic hear t disease of [place] coronary artery without angina pectoris [facility] [place] 2023-03-17 00:00 Acute sinusitis, unspecified [facility] [place] 2023-03-17 00:00 Chronic sinusitis, unspecified [facility] [place] 2023-03-17 00:00 Unspecified asthma, uncomplicat ed [facility] [place] 2023-03-17 00:00 Unilateral inguinal hernia, without obstruction or gangrene, not specified as recurrent [facility] [place] 2023-03-17 00:00 Hemorrhage of anus and rectum [facility] [place] 2023-03-17 00:00 Other specified diseases of megan er [facility] [place] 2023-03-17 00:00 Benign prostatic hyp erplasia without lower urinary tract symptoms [facility] [place] 2023-03-17 00:00 Bradycardia, unspecified [facility] [place] 2023-03-18 00:00 Rectal hemorrhage [facility] [place] 2023-03-18 00:00 Acute sinusitis [facility] [place] 2023-03-18 00:00 Other and unspecifie d malignant neoplasm of skin, site unspecified [facility] [place] 2023-03-18 00:00 Asthma [facility] [place] 2023-03-18 00:00 Childhood asthma [facility] [place] 2023-03-18 00:00 Disease of liver [facility] [place] 2023-03-18 00:00 Other and unspecified hyperlipi demia [facility] [place] 2023-03-18 00:00 Conjunctivitis, unspecified [facility] [place] 2023-03-18 00:00 Coronary atheroscler osis of unspecified type of vessel, [place] or graft [facility] [place] 2023-03-18 00:00 Sinoatrial node dysfunction [facility] [place] 2023-03-18 00:00 Extrinsic asthma, unspecified [facility] [place] 2023-03-18 00:00 Asthma, unspecified [facility] [place] 2023-03-18 00:00 Sinus bradycardia [facility] [place] 2023-03-18 00:00 Coronary arteriosclerosis [facility] [place] 2023-03-18 00:00 Unilateral or unspec ified inguinal hernia, without mention of obstruction or gangrene (not specified as recurrent) [facility] [place] 2023-03-18 00:00 Hyperlipidemia [facility] [place] 2023-03-18 00:00 Hemorrhage of rectum and anus [facility] [place] 2023-03-18 00:00 Other specified disorders of li yessica [facility] [place] 2023-03-18 00:00 Hypertrophy (benign) of prostate without urinary obstruction and other lower urinary tract (LUTS) [facility] [place] 2023-03-18 00:00 Inguinal hernia with out obstruction AND without gangrene [facility] [place] 2023-03-18 00:00 Conjunctivitis [facility] [place] 2023-03-18 00:00 Hyperlipidemia, unspecified [facility] [place] 2023-03-18 00:00 Unspecified conjunctivitis [facility] [place] 2023-03-18 00:00 Atherosclerotic hear t disease of [place] coronary artery without angina pectoris [facility] [place] 2023-03-18 00:00 Acute sinusitis, unspecified [facility] [place] 2023-03-18 00:00 Unspecified asthma, uncomplicat ed [facility] [place] 2023-03-18 00:00 Unilateral inguinal hernia, without obstruction or gangrene, not specified as recurrent [facility] [place] 2023-03-18 00:00 Hemorrhage of anus and rectum [facility] [place] 2023-03-18 00:00 Other specified diseases of megan er [facility] [place] 2023-03-18 00:00 Benign prostatic hyp erplasia without lower urinary tract symptoms [facility] [place] 2023-03-18 00:00 Bradycardia, unspecified [facility] [place] 2023-03-21 00:00 Rectal hemorrhage [facility] [place] 2023-03-21 00:00 Acute sinusitis [facility] [place] 2023-03-21 00:00 Other and unspecifie d malignant neoplasm of skin, site unspecified [facility] [place] 2023-03-21 00:00 Asthma [facility] [place] 2023-03-21 00:00 Childhood asthma [facility] [place] 2023-03-21 00:00 Disease of liver [facility] [place] 2023-03-21 00:00 Other and unspecified hyperlipi demia [facility] [place] 2023-03-21 00:00 Conjunctivitis, unspecified [facility] [place] 2023-03-21 00:00 Coronary atheroscler osis of unspecified type of vessel, [place] or graft [facility] [place] 2023-03-21 00:00 Sinoatrial node dysfunction [facility] [place] 2023-03-21 00:00 Extrinsic asthma, unspecified [facility] [place] 2023-03-21 00:00 Asthma, unspecified [facility] [place] 2023-03-21 00:00 Sinus bradycardia [facility] [place] 2023-03-21 00:00 Coronary arteriosclerosis [facility] [place] 2023-03-21 00:00 Unilateral or unspec ified inguinal hernia, without mention of obstruction or gangrene (not specified as recurrent) [facility] [place] 2023-03-21 00:00 Hyperlipidemia [facility] [place] 2023-03-21 00:00 Hemorrhage of rectum and anus [facility] [place] 2023-03-21 00:00 Other specified disorders of li yessica [facility] [place] 2023-03-21 00:00 Hypertrophy (benign) of prostate without urinary obstruction and other lower urinary tract (LUTS) [facility] [place] 2023-03-21 00:00 Inguinal hernia with out obstruction AND without gangrene [facility] [place] 2023-03-21 00:00 Conjunctivitis [facility] [place] 2023-03-21 00:00 Hyperlipidemia, unspecified [facility] [place] 2023-03-21 00:00 Unspecified conjunctivitis [facility] [place] 2023-03-21 00:00 Atherosclerotic hear t disease of [place] coronary artery without angina pectoris [facility] [place] 2023-03-21 00:00 Acute sinusitis, unspecified [facility] [place] 2023-03-21 00:00 Unspecified asthma, uncomplicat ed [facility] [place] 2023-03-21 00:00 Unilateral inguinal hernia, without obstruction or gangrene, not specified as recurrent [facility] [place] 2023-03-21 00:00 Hemorrhage of anus and rectum [facility] [place] 2023-03-21 00:00 Other specified diseases of megan er [facility] [place] 2023-03-21 00:00 Benign prostatic hyp erplasia without lower urinary tract symptoms [facility] [place] 2023-03-21 00:00 Bradycardia, unspecified [facility] [place] Procedures date description facility 2023-03-17 00:00 Visit Code Hold [facility] Social History date description facility 2023-03-17 00:00 Unknown if ever smoked [facility] [place] 2023-03-17 00:00 Former smoker [facility] Vital Signs date measurement value units 2023-03-17 00:00 BMI 24.34 kg/m2 2023-03-17 00:00 BP_diastolic 63 mmHg 2023-03-17 00:00 BP_systolic 154 mmHg 2023-03-17 00:00 heart_rate 50 /min 2023-03-17 00:00 height_metric 177.8 cm 2023-03-17 00:00 height_standard 70 in 2023-03-17 00:00 respiration_rate 18 /min 2023-03-17 00:00 temperature_metric 37.33 C 2023-03-17 00:00 temperature_standard 99.2 F 2023-03-17 00:00 weight_metric 76.66 kg 2023-03-17 00:00 weight_standard 169 lb
[2023-06-04 12:00] LABS: ALBUMIN 4.2 g/dL (3.2-5.5); ALBUMIN/GLOBULIN RATIO 1.6 (1.0-2.2); BILIRUBIN,TOTAL 0.8 mg/dL (0.2-1.0); CALCIUM 9.5 mg/dL (8.5-10.3); CREATININE 0.8 mg/dL (0.6-1.3); MAGNESIUM 1.9 mg/dL (1.7-2.3); TOTAL PROTEIN 6.9 g/dL (6.4-8.9)
[2023-06-04] MEDS ORDERED: KETOROLAC 15 MG/ML VIAL IVP STA (13:57)
[2023-06-04] MEDS ORDERED: HYDROmorphone 1 MG/ML CARPUJECT IVP STA (13:57)
--- NOTE | 2023-06-04 14:18 | CT Report ---
PROCEDURE: HEAD WO INDICATIONS: fall Wed, pain back/chest/head TECHNIQUE: Noncontrast 4.5 mm thick angled axial sections acquired from the foramen magnum to the vertex. For r adiation dose reduction, the following was used: automated exposure control, adjustment of mA and/or kV according to patient size. COMPARISON: 03/22/2016. Correlation is also made with brain MRI, 03/22/2016. Correlation is made with the accompanying abdomen pelvis CT. FINDINGS: Image quality: Excellent. CSF spaces: Basal cisterns are patent. No extra-axial fluid collections. Ventricles are prominent, yet symmetric. The ventricles are larger than would be expected, given the degree of sulcal atrophy. Brain: No midline shift. No intracranial masses or hemorrhage. Gonzalez-white matter interface is norm al. Skull and face: Calvarium and visualized facial bones are intact, without suspicious lesions. Sinuses: Moderate mucosal thickening is seen within the left maxillary sinus. Minimal mucosal thicken ing is seen elsewhere within the paranasal sinuses. No significant abnormal fluid can be seen within the mastoid air cells. IMPRESSION: No intracranial hemorrhage is seen. No significant intracranial abnormality is seen. The lateral ventricles are abnormally prominent and are more prominent than would be expected, given the degree of underlying sulcal atrophy. Please consider normal pressure hydrocephalus. Reviewed by: Johnathan Mera MD on 06/04/2023 1:16 PM [facility] Approved by: Johnathan Mera MD on 06/04/2023 1:16 PM [facility] Station ID: [id number]
--- NOTE | 2023-06-04 14:21 | CT Report ---
PROCEDURE: ABDOMEN/PELVIS W INDICATIONS: fell Wed, pain back/ribs/head CONTRAST: 100ml omni 300 TECHNIQUE: After the administration of IV contrast, 5 mm thick sections acquired from the diaphragms to the symp hysis. 5 mm thick coronal and sagittal reformats were acquired. For radiation dose reduction, the f ollowing was used: automated exposure control, adjustment of mA and/or kV according to patient size. COMPARISON: Correlation is made with the accompanying CT examinations. FINDINGS: Image quality: Excellent. Lung bases and heart: There is a moderate hiatal hernia. Sternotomy changes are noted. A calcified granuloma can be seen within the left lower lobe, as on series 3 image 17. There is moderate coronary calcification. Liver: No solid mass. Gallbladder and biliary tree: A layering gallstone can be seen within the gallbladder, as on series [address] findings of cholecystitis are seen. Spleen: No splenomegaly. Calcified granulomas can be seen within the spleen. Pancreas: No pancreatic ductal dilation. Adrenals: No adrenal nodule. Kidneys and ureters: No hydronephrosis. No renal cystic lesion which requires follow up. No solid mas s. Bowel and peritoneum: No bowel distension. No pathologic free fluid. Lymph nodes: No central or retroperitoneal adenopathy. Vessels: No infrarenal aortic aneurysm. Atherosclerotic calcification is seen. Incidental note is ma de of a circumaortic left renal vein. PELVIS Reproductive organs: Unremarkable. Bladder: No abnormal wall thickening, accounting for underdistension. Pelvic lymph nodes: No pelvic adenopathy by size criteria. Bones: No aggressive osseous abnormality. At least moderate generalized degenerative changes can be s een. Other: There is a fat-containing left inguinal hernia. IMPRESSION: No acute fracture is identified on these images. No significant posttraumatic findings of the abdomen or pelvis can be seen. Additional findings: Sternotomy wires Moderate hiatal hernia Moderate coronary artery calcification Prior granulomatous exposure. Gallstone Circumaortic left renal vein Fat-containing left inguinal hernia Reviewed by: Johnathan Mera MD on 06/04/2023 1:20 PM [facility] Approved by: Johnathan Mera MD on 06/04/2023 1:20 PM [facility] Station ID: [id number]
--- NOTE | 2023-06-04 14:28 | CT Report ---
PROCEDURE: CHEST W INDICATIONS: fall Wed, pain back/chest/head CONTRAST: 100ml omni 300 TECHNIQUE: After the administration of intravenous contrast, 1 mm axial images were acquired from the pulmonary apices through the posterior costophrenic angles. Axial 5 mm soft tissue kernel reconstructions were performed as well as 8 mm axial MIP and coronal and sagittal 5 mm reformations. For radiation dose reduction, the following was used: automated exposure control, adjustment of mA and/or kV according to patient size. COMPARISON: Correlation is made with the accompanying CT examinations. FINDINGS: Image quality: Excellent. Lungs and pleura: There is a focal area of consolidation seen within the inferior aspect of the right upper lobe, with mild spiculation. This is seen on series 3 image 30 and on series 6 image 51. This measures 4 x 2.4 cm in greatest axial dimension. No pleural effusions. No pneumothorax. Mild depen dent atelectasis can be seen. Mediastinum: Heart size is moderately enlarged No pericardial effusion. Advanced coronary calcificati ons with apparent stents can be seen. No large vessel abnormality. No mediastinal adenopathy by size criteria. There is a moderate hiatal hernia. Chest wall and lower neck: Thyroid is unremarkable. No axillary or supraclavicular adenopathy by size . Bones: There is a moderately displaced fracture seen within the T8 vertebral body, as on series 6 romy ge 39 and on series 5 image 38. Mild adjacent soft tissue hematoma can be seen. Relatively prominent generalized degenerative changes are seen. Mild dextroconvex scoliotic curvature is seen. Sternotomy Upper Abdomen: Please see the accompanying CT report IMPRESSION: T8 vertebral body fracture, with moderate displacement. No involvement of the posterior e lements can be seen. No definite displaced rib fracture can be seen. No pneumothorax. There is a 4 cm nodule within the inferior aspect of the right upper lobe. This is nonspecific, altho ugh differential diagnosis includes neoplasm. Please consider PET CT for further evaluation. If that is not clinically practical, then a follow-up noncontrast chest CT in 6-12 weeks would be recommended . Moderate cardiomegaly. Additional findings: Sternotomy Advanced coronary artery calcifications, with apparent stents Moderate hiatal hernia Note: Findings and recommendations discussed by telephone with Dr. Morales at 1:26 PM [place] time on 06/04/2023. Reviewed by: Johnathan Mera MD on 06/04/2023 1:27 PM [facility] Approved by: Johnathan Mera MD on 06/04/2023 1:27 PM [facility] Station ID: [id number]
[2023-06-04] MEDS ORDERED: DOPamine 400 MG/250 ML 400 MG/250 ML BAG IV STA (15:30)
[2023-06-05 09:05] VITALS: BP 157/57; O2SAT 98
--- NOTE | 2023-06-05 09:59 | ED Physician Documentation ---
ED Addendum - Addendum Addendum: 06/05/23 09:57 The patient has remained stable overnight. His heart rate has ranged from 40-55 in general. His blood pressures been normal. He has not had any chest pain, dyspnea, lightheadedness. He is stood bedside for urination. He has not been ambulatory per se. He remains in apparent [place] 2 heart block. There had not been much real improvement in heart rate and general with the dopamine which had remained on overnight. At this point it does not seem to be contributing necessarily and we can discontinue it at the suggestion of cardiology. I did talk with cardiology from [facility]. I spoke with Yordan Calhoun cardiology who is agreed that the patient would be appropriate for pacemaker. He defers to the hospitalist service. I talked with Dr. Hernandez who is the hospitalist and accepts transfer. We will arrange transfer by [facility] ambulance. I advised the patient of this and he is pleased that there is progress.
== END 2023-06-05 11:05 | disposition short-term general hospital (02) ==
LOC: ED 10:50
DX: I44.1 Atrioventricular block, second degree (principal); R00.1 Bradycardia, unspecified; S22.060A Wedge compression fracture of T7-T8 vertebra, initial encounter for closed fracture; S30.0XXA Contusion of lower back and pelvis, initial encounter; W19.XXXA Unspecified fall, initial encounter; R91.8 Other nonspecific abnormal finding of lung field; Z95.1 Presence of aortocoronary bypass graft; Z79.82 Long term (current) use of aspirin; Z87.891 Personal history of nicotine dependence; R55 Syncope and collapse
CPT/HCPCS: 36415; 70450; 71260; 74177; 80053; 83690; 83735; 83880; 84443; 84484; 85025; 92953; 93005; 96365; 96366; 96375; 99291; J1170

== ENCOUNTER 2023-06-05 11:00 | Outpatient (CLI) | payer MEDICARE, OTHER | END 2023-06-05 11:01 | disposition short-term general hospital (02) | LOC: EMS 11:00 | DX: I44.1 Atrioventricular block, second degree (principal) | CPT/HCPCS: A0425; A0428 ==

== ENCOUNTER 2023-06-09 13:40 | Emergency (ER) | payer MEDICARE, OTHER ==
[2023-06-09 13:50] VITALS: O2SAT 99
--- OUTSIDE RECORDS SUMMARY | 2023-06-09 14:04 | EXTERNAL MEDICAL SUMMARY RPT | Continuity of Care Document ---
Author Name Unknown Address [address] [place] [address] Phone Organization [facility] Address [address] [place] [address] Phone Care Team Providers Care Urologist Md Name Role Phone Unavailable Unavailable Unavailable Afua Azevedo Pa-C Unavailable Unavailable Medications date description facility 2023-03-18 00:00 [facility]olol [facility] [place] 2023-03-21 00:00 atenolol [facility] [...] [facility] [place] 2023-03-18 00:00 escitalopram oxalate [facility] in [...] Cl in [facility] [place] 2023-03-21 00:00 escitalopram oxalate [facility] [place] 2023-03-18 00:00 clopidogrel [facility] [place] 2023-03-21 00:00 clopidogrel [facility] [place] 2023-03-17 00:00 ASPIRIN [facility] [place] 2023-03-18 00:00 ASPIRIN [facility] [place] 2023-03-21 00:00 ASPIRIN [facility] [place] 2023-03-18 00:00 aspirin [facility] [place] 2023-03-21 00:00 aspirin [facility] [place] 2023-03-18 00:00 simvastatin [facility] [place] 2023-03-21 00:00 simvastatin [facility] [place] 2023-03-18 00:00 escitalopram oxalate [facility] [place] 2023-03-21 00:00 escitalopram oxalate [facility] [place] 2023-03-17 00:00 amoxicillin-pot clavulanate [facility] [place] 2023-03-18 00:00 escitalopram oxalate [facility] [place] 2023-03-21 00:00 escitalopram oxalate [facility] [place] 2023-03-18 00:00 clopidogrel [facility] [place] 2023-03-21 00:00 clopidogrel [facility] [place] Problems date description facility 2023-03-17 00:00 Rectal hemorrhage [facility] [place] 2023-03-17 00:00 Acute sinusitis [facility] [place] 2023-03-17 00:00 Other and unspecifie d malignant neoplasm of skin, site unspecified [facility] [place] 2023-03-17 00:00 Asthma [facility] [...] atheroscler osis of unspecified type of vessel, [place] or graft [facility] [place] 2023-03-17 00:00 Sinoatrial node dysfunction [facility] [place] 2023-03-17 00:00 Extrinsic asthma, unspecified [facility] [place] 2023-03-17 00:00 Asthma, unspecified [facility] [place] 2023-03-17 00:00 Sinus bradycardia [facility] [place] 2023-03-17 00:00 Coronary arteriosclerosis [facility] [place] [...] with out obstruction AND without gangrene [facility] [place] 2023-03-17 00:00 Conjunctivitis [facility] [place] 2023-03-17 00:00 Hyperlipidemia, unspecified [facility] [place] 2023-03-17 00:00 Unspecified conjunctivitis [facility] [place] 2023-03-17 00:00 Atherosclerotic hear t disease of [place] river coronary artery without angina pectoris [facility] [place] 2023-03-17 00:00 Acute sinusitis, unspecified [facility] [place] 2023-03-17 00:00 Chronic sinusitis, unspecified [facility] [place] 2023-03-17 00:00 Unspecified asthma, uncomplicat ed [facility] [place] 2023-03-17 00:00 Unilateral inguinal hernia, without obstruction or gangrene, not specified as recurrent [facility] [place] 2023-03-17 00:00 Hemorrhage of anus and rectum [facility] [place] 2023-03-17 00:00 Other specified diseases of megan er [facility] [place] 2023-03-17 00:00 Benign prostatic hyp erplasia without lower urinary tract symptoms [facility] [place] 2023-03-17 00:00 Bradycardia, unspecified [facility] [place] 2023-03-18 00:00 Rectal hemorrhage [facility] [place] 2023-03-18 00:00 Acute sinusitis [facility] [place] 2023-03-18 00:00 Other and unspecifie d malignant neoplasm of skin, site unspecified [facility] [place] 2023-03-18 00:00 Asthma [facility] [place] 2023-03-18 00:00 Childhood asthma [facility] [place] 2023-03-18 00:00 Disease of liver [facility] [place] 2023-03-18 00:00 Other and unspecified hyperlipi demia [facility] [place] 2023-03-18 00:00 Conjunctivitis, unspecified [facility] [place] 2023-03-18 00:00 Coronary atheroscler osis of unspecified type of vessel, [place] or graft [facility] [place] 2023-03-18 00:00 Sinoatrial node dysfunction [facility] [place] 2023-03-18 00:00 Extrinsic asthma, unspecified [facility] [place] 2023-03-18 00:00 Asthma, unspecified [facility] [place] 2023-03-18 00:00 Sinus bradycardia [facility] [place] 2023-03-18 00:00 Coronary arteriosclerosis Walk- In [facility] [place] 2023-03-18 00:00 Unilateral or unspec ified inguinal hernia, without mention of obstruction or gangrene (not specified as recurrent) Walk-In [facility] [place] 2023-03-18 00:00 Hyperlipidemia [facility]-In [facility] [place] 2023-03-18 00:00 Hemorrhage of rectum and anus [...] with out obstruction AND without gangrene [facility]-In [facility] [place] 2023-03-18 00:00 Conjunctivitis [facility] [place] 2023-03-18 00:00 Hyperlipidemia, unspecified [facility] [place] 2023-03-18 00:00 Unspecified conjunctivitis Walk -In [facility] [place] 2023-03-18 00:00 Atherosclerotic hear t disease of [place] coronary artery without angina pectoris [facility]-In [facility] [place] 2023-03-18 00:00 Acute sinusitis, unspecified [facility] [place] 2023-03-18 00:00 Unspecified asthma, uncomplicat ed [facility] [place] 2023-03-18 00:00 Unilateral inguinal hernia, without obstruction or gangrene, not specified as recurrent [facility]-In [facility] [place] 2023-03-18 00:00 Hemorrhage of anus and rectum [facility] alk-In [facility] [place] 2023-03-18 00:00 Other specified diseases of megan er [facility]-In [facility] [place] 2023-03-18 00:00 Benign prostatic hyp erplasia without lower urinary tract symptoms [facility]-In [facility] [place] 2023-03-18 00:00 Bradycardia, unspecified [facility]-I n [facility] [place] 2023-03-21 00:00 Rectal hemorrhage [facility] [place] 2023-03-21 00:00 Acute sinusitis Walk-In [facility] [place] 2023-03-21 00:00 Other and unspecifie d malignant neoplasm of skin, site unspecified [facility]-In [facility] [place] 2023-03-21 00:00 Asthma [facility]-In [facility] [place] 2023-03-21 00:00 Childhood asthma Walk-In [facility] [place] 2023-03-21 00:00 Disease of liver [facility]-In [facility] [place] 2023-03-21 00:00 Other and unspecified hyperlipi demia [facility]-In [facility] [place] 2023-03-21 00:00 Conjunctivitis, unspecified [facility] [place] 2023-03-21 00:00 Coronary atheroscler osis of unspecified type of vessel, little river or graft [facility]-In [facility] [place] 2023-03-21 00:00 Sinoatrial node dysfunction [facility] [place] 2023-03-21 00:00 Extrinsic asthma, unspecified [facility] alk-In [facility] [place] 2023-03-21 00:00 Asthma, unspecified [facility] [place] 2023-03-21 00:00 Sinus bradycardia [facility] [place] 2023-03-21 00:00 Coronary arteriosclerosis [facility] [place] 2023-03-21 00:00 Unilateral or unspec ified inguinal hernia, without mention of obstruction or gangrene (not specified as recurrent) [facility] [place] 2023-03-21 00:00 Hyperlipidemia [facility] [place] 2023-03-21 00:00 Hemorrhage of rectum and anus [facility] [place] 2023-03-21 00:00 Other specified disorders of li yessica [facility] [place] 2023-03-21 00:00 Hypertrophy (benign) of prostate without urinary obstruction and other lower urinary tract (LUTS) [facility] [place] 2023-03-21 00:00 Inguinal hernia with out obstruction AND without gangrene [facility] [place] 2023-03-21 00:00 Conjunctivitis [facility] [place] 2023-03-21 00:00 Hyperlipidemia, unspecified [facility] [place] 2023-03-21 00:00 Unspecified conjunctivitis [facility] [place] 2023-03-21 00:00 Atherosclerotic hear t disease of [place] coronary artery without angina pectoris [facility] [place] 2023-03-21 00:00 Acute sinusitis, unspecified [facility] [place] 2023-03-21 00:00 Unspecified asthma, uncomplicat ed [facility] [place] 2023-03-21 00:00 Unilateral inguinal hernia, without obstruction or gangrene, not specified as recurrent [facility] [place] 2023-03-21 00:00 Hemorrhage of anus and rectum [facility] [place] 2023-03-21 00:00 Other specified diseases of megan er [facility] [place] 2023-03-21 00:00 Benign prostatic hyp erplasia without lower urinary tract symptoms [facility] [place] 2023-03-21 00:00 Bradycardia, unspecified [facility] [place] Procedures date description facility 2023-03-17 00:00 Visit Code Hold [facility]-In [facility] [place] Social History date description facility 2023-03-17 00:00 [facility] [place] 2023-03-17 00:00 [facility] Vital Signs date measurement value units 2023-03-17 [...]
--- NOTE | 2023-06-09 15:45 | ED Physician Documentation ---
History of Present Illness - Stated complaint Stated Complaint: POST SURGICAL COMPLICATIONS - Chief complaint Chief Complaint: General - History obtained from History obtained from: Patient - History of Present Illness Timing: How many days ago (2) Pain level max: 0 Pain level now: 0 - Additonal information Additional information: 87-year-old male presents to the emergency department with swelling to the right thigh and bruising. He states that this occurred after a pacemaker implant 2 days ago at [facility] in [place] with Dr. Valenzuela. He was started on Eliquis 2 days ago. Not having any significant pain. Nothing makes it better or worse. He did not contact Dr. Tom, came to the ER for further evaluation. Patient is otherwise asymptomatic. Review of Systems Constitutional: denies: Fever, Chills GI: denies: Vomiting, Diarrhea Skin: denies: Rash Musculoskeletal: denies: Neck pain, Back pain PD PAST MEDICAL HISTORY - Past Medical History Past Medical History: Yes Cardiovascular: Coronary artery disease, Arrhythmia Respiratory: None Neuro: CVA Endocrine/Autoimmune: None GI: None : None HEENT: Chronic vision loss Psych: Anxiety Musculoskeletal: Osteoarthritis Derm: None - Past Surgical History Past Surgical History: Yes General: Appendectomy, Other Cardiovascular: CABG, Pacemaker HEENT: Tonsil/Adenoidectomy Derm: Skin cancer surgery - Present Medications Home Medications: Ambulatory Orders Medication Instructions Recorded Confirmed Aspirin 0.5 tab PO DAILY 12/17/14 06/04/23 Cholecalciferol (Vitamin D3) 1,000 unit PO DAILY 12/17/14 06/04/23 [Vitamin D] Clopidogrel [Plavix] 75 mg PO DAILY 12/17/14 06/04/23 Simvastatin 40 mg PO DAILY 12/17/14 06/04/23 HYDROcod/ACETAM 5/325 [[place] 5/325] 1 ea PO Q6H PRN #20 tablet 06/04/23 Lidocaine Patch 5% [Lidoderm Patch] 1 patch TOP DAILY PRN #10 patch 06/04/23 methocarbamoL [Robaxin] 500 mg PO Q8H PRN #20 tablet 06/04/23 - Allergies Allergies/Adverse Reactions: Allergies Allergy/AdvReac Type Severity Reaction Status Date / Time No Known Drug Allergies Allergy Verified 06/09/23 13:43 - Social History Does the pt smoke?: No Smoking Status: Never smoker Does the pt drink ETOH?: Yes Does the pt have substance abuse?: No - Immunizations Immunizations are current?: Yes - POLST Patient has POLST: No PD ED PE NORMAL - Vitals Vital signs reviewed: Yes - General General: Alert and oriented X 3, No acute distress - HEENT HEENT: Moist mucous membranes - Neck Neck: Supple, no meningeal sign - Cardiac Cardiac: RRR - Respiratory Respiratory: No respiratory distress, Clear bilaterally - Abdomen Abdomen: Soft, Non tender, Non distended - Derm Derm: Warm and dry - Extremities Extremities: Other (There is a hematoma and ecchymosis to the right groin at the puncture site. Otherwise normal examination. NVI) - Neuro Neuro: Alert and oriented X 3 - Psych Psych: Normal mood, Normal affect Results - Vitals Vitals: Vital Signs - 24 hr 06/09/23 13:43 Temperature 36.5 C Heart Rate 62 Respiratory 16 Rate Blood Pressure 150/60 H O2 Saturation 99 Oxygen O2 Source [With Activity] Room air O2 Source [Without Activity] Room air O2 Source Room air - Rads (name of study) Right lower extremity ultrasound Relevant Findings:: Final report received, See rad report PD Medical Decision Making - ED course Complexity details: reviewed results, considered differential, d/w patient, d/w family ED course: Small hematoma on ultrasound. No pseudoaneurysm. We will have the patient continue the postoperative care at home and have him follow-up with his garnishment specialist as needed. Recommend ice and compression. Patient counseled regarding signs and symptoms for which I believe and urgent re-evaluation would be necessary. Patient with good understanding of and agreement to plan and is comfortable going home at this time This document was made in part using voice recognition software. While efforts are made to proofread this document, sound alike and grammatical errors may occur. Departure - Departure Disposition: 01 Home, Self Care Clinical Impression: Postoperative hematoma Qualifiers: Surgical complication system/body Area: circulatory system Procedure type: cardiac catheterization Qualified Code(s): I97.630 - Postprocedural hematoma of a circulatory system organ or structure following a cardiac catheterization Condition: Good Instructions: Pacemaker Implantation Dc Follow-Up: Nilay Jennings MD [Primary Care Provider] - Within 1 week Comments: Your ultrasound does not show any evidence of an aneurysm formation or pseudoaneurysm formation. There is a hematoma, would recommend applying ice to the area. Compression will help to decrease the swelling as well. Please follow-up with your garnishment specialist for further care. Forms: PCP List
[2023-06-09 17:26] VITALS: BP 141/59
--- NOTE | 2023-06-09 17:48 | Ultrasound Report ---
PROCEDURE: Ext Limited Non Vascular INDICATIONS: post procedural hematoma; eval for pseudoaneurysm TECHNIQUE: Real-time scanning was performed of the right inguinal region, with image documentation. COMPARISON: None. FINDINGS: There is a small hematoma noted in the right inguinal region at the site of previous incis ion measuring 1.1 x 0.9 x 1.0 cm. No internal vascularity. No abnormal fluid collection seen. No evid ence for pseudoaneurysm. IMPRESSION: No sonographic evidence for pseudoaneurysm in the right inguinal region. Small hematoma at the site of previous incision. Reviewed by: Carlos Espana MD on 06/09/2023 5:47 PM PDT Approved by: Carlos Espana MD on 06/09/2023 5:47 PM PDT Station ID: [id number]
== END 2023-06-09 17:25 | disposition home or self-care (01) ==
LOC: ED 13:40
DX: I97.630 Postprocedural hematoma of a circulatory system organ or structure following a cardiac catheterization (principal); Z95.0 Presence of cardiac pacemaker
CPT/HCPCS: 99283; 99284

== ENCOUNTER 2023-08-12 11:09 | Emergency (ER) | payer MEDICARE, OTHER ==
[2023-08-12 11:28] VITALS: BP 119/86; O2SAT 100
--- NOTE | 2023-08-12 12:04 | ED Physician Documentation ---
PD HPI MAJOR TRAUMA - Stated complaint Stated Complaint: GLF,RT SIDE PX - Chief complaint Chief Complaint: Trauma Ch/Bk - History obtained from History obtained from: Patient - Additional information Additional information: 87-year-old gentleman with relatively frequent falls. Fell 8 days ago hitting the back of his chest wall, pain was initially severe then subsided now severe again. No other injuries. He has a prescription for Pradaxa for recent atrial flutter but has not yet filled it. There was no head injury. PD PAST MEDICAL HISTORY - Past Medical History Cardiovascular: Coronary artery disease, Arrhythmia Respiratory: None Neuro: CVA Endocrine/Autoimmune: None GI: None : None HEENT: Chronic vision loss Psych: Anxiety Musculoskeletal: Osteoarthritis Derm: None - Past Surgical History Past Surgical History: Yes General: Appendectomy, Other Cardiovascular: CABG, Pacemaker HEENT: Tonsil/Adenoidectomy Derm: Skin cancer surgery - Present Medications Home Medications: Ambulatory Orders Medication Instructions Recorded Confirmed Aspirin 0.5 tab PO DAILY 12/17/14 06/04/23 Cholecalciferol (Vitamin D3) 1,000 unit PO DAILY 12/17/14 06/04/23 [Vitamin D] Clopidogrel [Plavix] 75 mg PO DAILY 12/17/14 06/04/23 Simvastatin 40 mg PO DAILY 12/17/14 06/04/23 HYDROcod/ACETAM 5/325 [[place] 5/325] 1 ea PO Q6H PRN #20 tablet 06/04/23 Lidocaine Patch 5% [Lidoderm Patch] 1 patch TOP DAILY PRN #10 patch 06/04/23 methocarbamoL [Robaxin] 500 mg PO Q8H PRN #20 tablet 06/04/23 - Allergies Allergies/Adverse Reactions: Allergies Allergy/AdvReac Type Severity Reaction Status Date / Time No Known Drug Allergies Allergy Verified 06/09/23 13:43 - Social History Does the pt smoke?: No Smoking Status: Never smoker Does the pt drink ETOH?: Yes Does the pt have substance abuse?: No - Immunizations Immunizations are current?: Yes - POLST Patient has POLST: No PD ED PE NORMAL - Vitals Vital signs reviewed: Yes - General General: Alert and oriented X 3, No acute distress - HEENT HEENT: PERRL, EOMI - Neck Neck: Supple, no meningeal sign, No bony TTP - Back Back: No spinal TTP, Other (There is bruising on the right mid and low back with tenderness of the low scapula and low ribs. Equal breath sounds. No flank or abdominal tenderness.) - Neuro Neuro: Alert and oriented X 3, Normal speech Results - Vitals Vitals: Vital Signs - 24 hr 08/12/23 11:21 Temperature 36.5 C Heart Rate 76 Respiratory 16 Rate Blood Pressure 119/86 H O2 Saturation 100 Oxygen O2 Source [With Activity] Room air O2 Source [Without Activity] Room air O2 Source Room air - Rads (name of study) CT CHest Relevant Findings:: Final report received, Discussed with radeugenio, EMP independent interpretation of test PD Medical Decision Making - ED course ED course: 87-year-old gentleman with 8-day old right chest wall injury. CT of the chest done without contrast demonstrates 3 rib fractures with a low-density right pleural effusion, stable T8 fracture and there is a lung mass noted on prior CT that today the radiologist feels is probably rounded atelectasis but verbally to me she does recommend 6-month follow-up. Patient declined prescription pain medications and will continue home regimen of Tylenol and ibuprofen, and we dis cussed the risks of NSAIDs at the age of 87. Departure - Departure Disposition: 01 Home, Self Care Clinical Impression: Fracture of rib Qualifiers: Encounter type: initial encounter Rib fracture type: multiple ribs Fracture type: closed Laterality: right Qualified Code(s): S22.41XA - Multiple fractures of ribs, right side, initial encounter for closed fracture Condition: Good Record reviewed to determine appropriate education?: Yes Instructions: ED Fx Rib Comments: As discussed you have 3 rib fractures with a small amount of fluid in your lung. The lung lesion looks stable from the CAT scan 2 months ago and our radiologist feels like it is probably "rounded atelectasis." That said abdomen abundance of caution she recommends a repeat CAT scan in 6 months to document ongoing stability. Return for new or worsening symptoms. Continue your current pain management protocol. Forms: PCP List Discharge Date/Time: 08/12/23 15:54
--- NOTE | 2023-08-12 16:04 | CT Report ---
PROCEDURE: CHEST WO INDICATIONS: post chest wall inj, go through low ribs, ok for w TECHNIQUE: Noncontrast 1mm axial images were acquired from the pulmonary apices to the posterior costophrenic an gles. Axial 5 mm soft tissue kernel reconstructions were performed as well as 8 mm axial MIP and cor onal and sagittal 5 mm reformations. For radiation dose reduction, the following was used: automate d exposure control, adjustment of mA and/or kV according to patient size. COMPARISON: FINDINGS: Image quality: Excellent. Lungs and pleura: Probable rounded atelectasis is present at the anterior right lung base. Multiple c alcified granulomas are present within the left lower lobe. Atelectasis or scar is redemonstrated at the lingular base. There is a small low-density right pleural effusion which is increased when compar ed with the study dated 06/04/2023. Mediastinum: Heart size is normal. No pericardial effusion. No large vessel abnormality. No mediastin al adenopathy by size criteria. Scattered atheromatous calcifications are present at the thoracic ar ch. There is a moderate-sized hiatal hernia Chest wall and lower neck: Thyroid is unremarkable. No axillary or supraclavicular adenopathy by size . Bones: Patient is status post median sternotomy. There are displaced right lateral seventh, eighth, a nd ninth rib fractures. Minimally displaced T8 fracture through the body of the vertebral body which extends into the middle column is redemonstrated and appears unchanged from the study dated 06/04/2023 . Superior T6 compression deformity is unchanged. No new compression deformities of the thoracic spin e. Upper Abdomen: Unremarkable. IMPRESSION: 1. 7-9 right lateral rib fractures. 2. Small low-density right pleural effusion. 3. Stable T8 fracture when compared with the prior study. 4. Probable right basilar rounded atelectasis. Reviewed by: Bren Abbott MD on 08/12/2023 3:23 PM PDT Approved by: Bren Abbott MD on 08/12/2023 3:23 PM PDT Station ID: [id number]
== END 2023-08-12 15:54 | disposition home or self-care (01) ==
LOC: ED 11:09
DX: S22.41XA Multiple fractures of ribs, right side, initial encounter for closed fracture (principal); W19.XXXA Unspecified fall, initial encounter; Z79.82 Long term (current) use of aspirin; Z79.899 Other long term (current) drug therapy; Z79.02 Long term (current) use of antithrombotics/antiplatelets
CPT/HCPCS: 99283; 99284

== ENCOUNTER 2023-08-16 13:16 | Outpatient (CLI) | payer MEDICARE, OTHER | END 2023-08-16 13:17 | disposition critical access hospital (66) | LOC: EMS 13:16 | DX: R42 Dizziness and giddiness (principal) | CPT/HCPCS: A0425; A0429 ==

== ENCOUNTER 2023-08-16 13:43 | Emergency (ER) | payer MEDICARE, OTHER ==
[2023-08-16 14:15] LABS: BASOPHILS # (AUTO) 0.1 10^3/uL (0.0-0.1); BASOPHILS % (AUTO) 0.6 %; EOSINOPHILS # (AUTO) 0.1 10^3/uL (0.0-0.7); EOSINOPHILS % (AUTO) 1.7 %; HCT - HEMATOCRIT 41.4 % (42.0-52.0); HGB - HEMOGLOBIN 13.4 g/dL (14.0-18.0); LYMPHOCYTES # (AUTO) 1.5 10^3/uL (1.5-3.5); LYMPHOCYTES % (AUTO) 17.8 %; MEAN CORPUSCULAR HEMOGLOBIN 29.4 pg (27.0-31.0); MEAN CORPUSCULAR HGB CONC 32.4 g/dL (32.0-36.0); MEAN CORPUSCULAR VOLUME 90.8 fL (80.0-94.0); MEAN PLATELET VOLUME 8.5 fL (7.4-11.4); MONOCYTES # (AUTO) 0.8 10^3/uL (0.0-1.0); MONOCYTES % (AUTO) 9.2 %; NEUTROPHILS # (AUTO) 5.9 10^3/uL (1.5-6.6); NEUTROPHILS % (AUTO) 70.3 %; PLT - PLATELET COUNT 379 10^3/uL (130-450); RED BLOOD COUNT 4.56 10^6/uL (4.70-6.10); RED CELL DISTRIBUTION WIDTH 12.6 % (12.0-15.0); WHITE BLOOD COUNT 8.4 x10^3/uL (4.8-10.8)
[2023-08-16 14:28] LABS: ALBUMIN 4.2 g/dL (3.2-5.5); ALBUMIN/GLOBULIN RATIO 1.5 (1.0-2.2); BILIRUBIN,TOTAL 0.5 mg/dL (0.2-1.0); CALCIUM 9.6 mg/dL (8.5-10.3); CREATININE 0.8 mg/dL (0.6-1.3); POTASSIUM 3.9 mmol/L (3.5-4.5)
--- NOTE | 2023-08-16 14:30 | ED Physician Documentation ---
History of Present Illness - Stated complaint Stated Complaint: DIZZY/UNSTEADY - Chief complaint Chief Complaint: Neuro - Additonal information Additional information: 87-year-old male who has a history of coronary artery disease, recent falls, previous CVA presents to the emergency department for evaluation of what he believes to be a TIA and feeling very off balance. Patient states he woke up at 830 this morning and found he was having difficulty getting out of bed and felt very off balance. No sensation of room spinning. It subsided after short bit of time but then returned about 1045 this morning. He did fine however it was w orse with head movement. Patient does have a history of a pacer. Recently diagnosed with atrial fibs/flutter. Was to be started on Pradaxa but has just now gotten it filled and not taking it. He stated he wanted to transition off of the Plavix before starting the his DOAC Patient did have a fall and was seen here on 12 July where he was diagnosed with 3 right-sided rib fractures. He denies any dyspnea or increase in pain. Feels that they are healing well. Patient has an NIHSS of 0 on presentation to the ER. Review of Systems Constitutional: denies: Fever Eyes: reports: Reviewed and negative Ears: reports: Reviewed and negative Cardiac: reports: Reviewed and negative Respiratory: reports: Reviewed and negative GI: reports: Reviewed and negative : reports: Reviewed and negative Neurologic: reports: Other (off balance). denies: Generalized weakness, Focal weakness, Numbness, Difficulty speaking, Near syncope, Headache, Head injury, LOC PD PAST MEDICAL HISTORY - Past Medical History Cardiovascular: Coronary artery disease, Arrhythmia Respiratory: None Neuro: CVA Endocrine/Autoimmune: None GI: None : None HEENT: Chronic vision loss Psych: Anxiety Musculoskeletal: Osteoarthritis Derm: None - Past Surgical History Past Surgical History: Yes General: Appendectomy, Other Cardiovascular: CABG, Pacemaker HEENT: Tonsil/Adenoidectomy Derm: Skin cancer surgery - Present Medications Home Medications: Ambulatory Orders Medication Instructions Recorded Confirmed Aspirin 0.5 tab PO DAILY 12/17/14 08/16/23 Cholecalciferol (Vitamin D3) 1,000 unit PO DAILY 12/17/14 08/16/23 [Vitamin D] Clopidogrel [Plavix] 75 mg PO DAILY 12/17/14 08/16/23 Simvastatin 40 mg PO DAILY 12/17/14 08/16/23 Amox/Clav 875/125 [Augmentin] 1 each PO Q12H #20 tablet 08/16/23 Azithromycin [Zithromax] 0 mg PO DAILY #6 tablet 08/16/23 - Allergies Allergies/Adverse Reactions: Allergies Allergy/AdvReac Type Severity Reaction Status Date / Time No Known Drug Allergies Allergy Verified 06/09/23 13:43 - Social History Does the pt smoke?: No Smoking Status: Never smoker Does the pt drink ETOH?: Yes Does the pt have substance abuse?: No - Immunizations Immunizations are current?: Yes - POLST Patient has POLST: No PD ED PE NORMAL - General General: Alert and oriented X 3, No acute distress - HEENT HEENT: Atraumatic - Neck Neck: Supple, no meningeal sign - Cardiac Cardiac: No: RRR (Paced ECG on the monitor underlying atrial fib) - Respiratory Respiratory: No respiratory distress - Abdomen Abdomen: Normal bowel sounds, Soft - Derm Derm: Normal color - Neuro Neuro: Alert and oriented X 3, head packager 2-12 intact, No motor deficit Eye Opening: Spontaneous Motor: Obeys Commands Verbal: Oriented GCS Score: 15 Results - Vitals Vitals: Vital Signs - 24 hr 08/16/23 13:59 Temperature 36.7 C Heart Rate 65 Respiratory 19 Rate Blood Pressure 147/70 H O2 Saturation 97 Oxygen O2 Source [With Activity] Room air O2 Source [Without Activity] Room air O2 Source Room air - EKG (time done) 1411 EKG releavant findings:: EKG personally interpreted by author of this note. Relevant findings are: Rate: Rate (enter#) (61) Rhythm: Paced (underlying fib/flutter) Compare to prior EKG: Changed from prior EKG Computer interpretation: Agree with computer (A-fib flutter paced. No other analysis completed) - Labs Labs: Laboratory Tests 08/16/23 08/16/23 14:06 14:06 WBC 8.4 RBC 4.56 L Hgb 13.4 L Hct 41.4 L MCV 90.8 MCH 29.4 MCHC 32.4 RDW 12.6 Plt Count 379 MPV 8.5 Neut # (Auto) 5.9 Lymph # (Auto) 1.5 [place] # (Auto) 0.8 Eos # (Auto) 0.1 Baso # (Auto) 0.1 Absolute Nucleated RBC 0.00 Nucleated RBC % 0.0 Sodium 136 Potassium 3.9 Chloride 100 L Carbon Dioxide 30 Anion Gap 6.0 BUN 19 Creatinine 0.8 Estimated GFR (MDRD) 91 Glucose 144 H Calcium 9.6 Total Bilirubin 0.5 AST 26 ALT 19 Alkaline Phosphatase 105 Total Protein 7.0 Albumin 4.2 Globulin 2.8 Albumin/Globulin Ratio 1.5 Lipase 38 - Rads (name of study) cxr Relevant Findings:: Final report received ( well moderate perihilar and lower lung opacities, possibly infectious/inflammatory. Superimposed atelectasis is likely. Consider future imaging surveillance to assess for resolution.) PD Medical Decision Making - ED course Complexity details: reviewed results, re-evaluated patient, considered differential, d/w patient ED course: 87-year-old male who has a history of A-fib/flutter recently placed with a pacemaker presents to the emergency department for TIA like events in which he has found that he feels like he is off balance. He has had no slurred speech, facial droop arm or leg weakness. On presentation to the ER he had an NIHSS of 0. The patient was advised to begin taking a DOAC for his A-fib and the presence of a pacemaker. Due to cost issues he was unable to fill it until yesterday. He is currently on Plavix. Here in the emergency department we did obtain CBC and electrolytes which per my interpretation showed no acute findings. His twelve-lead EKG is interpreted by myself was a paced rhythm with an underlying A-fib flutter. I did do CT angiograms of the head and neck which did not show any large vessel occlusion, aneurysm or significant stenosis. Given the in availability of MRI at this hour of the day as well as the impacted status of the emergency department we were able to alternatively obtain an echocardiogram for the patient. This was to evaluate for the possibility of a thrombus. He has an ejection fraction of 50%. No obvious thrombus seen on echo however it could not be excluded. Patient was also recently seen in the emergency department after a fall and was found to have 3 rib fractures. An x-ray today suggest that he has pneumonia. He however does not have white count or cough. for the pneumonia finding he was started on ceftriaxone and azithromycin. I discussed with patient that the dizziness could be a sign of a stroke but he did not have any findings suggest a large vessel occlusion. We also could not definitively rule out a thrombus. We discussed treatment of the pneumonia with outpatient antibiotics. I did discuss with patient the possibility of remaining in the emergency department for an MRI overnight however the patient declined and prefered to be disposed home if possible.. As such she will follow-up with his PCP to obtain outpatient MRI. He is advised to begin taking his DOAC today continue follow-up with his primary care doctor. A prescription for Augmentin and azithromycin is sent to the patient's preferred pharmacy. The usual emergent return precautions were discussed for worsening symptoms. Departure - Departure Disposition: Home, Self Care Clinical Impression: Dizziness, Atrial fibrillation by electrocardiogram Pneumonia Qualifiers: Pneumonia type: due to unspecified organism Laterality: bilateral Lung location: unspecified part of lung Qualified Code(s): J18.9 - Pneumonia, unspecified organism Condition: Stable Record reviewed to determine appropriate education?: Yes Prescriptions: Amox/Clav 875/125 [Augmentin] 1 each PO Q12H #20 tablet Azithromycin [Zithromax] 0 mg PO DAILY #6 tablet Comments: Carlos the angiograms of your head and neck today did not show any evidence of significant stenosis large vessel occlusion or aneurysm. We did find that you have pneumonia in your lungs. This is most likely because of the recent rib fractures and inability to take big deep breaths. Because of your atrial fibrillation you are at increased risk for strokes. Please begin taking the Pradaxa tonight. I would ask you to follow closely with your primary care doctor they should order an MRI of your brain as an outpatient. You do need to return immediately to the ER if you develop slurred speech, facial droop or have sudden weakness in your arms or legs. To treat the pneumonia I encourage you to take big deep breaths and try and cough 5-10 times a day. This will help clear your lungs. If at any point you develop difficulty breathing you also need to return to the ER but I would like you to follow-up with your primary care providers in the next week for reevaluation. Forms: PCP List NIHSS - Time Time: 14:15 - Level of Consciousness Level of consciousness: (0) Alert, Keenly responsive LOC Questions: (0) Answers both Q's correct LOC Commands: (0) Performs both correctly - Gaze Best Gaze: (0) Normal - Visual Visual: (0) No loss - Facial Palsy Facial Palsy: (0) Normal, symmetrical movement - Motor Arms (both separate) Motor Arm (right): (0) No drift Motor Arm (left): (0) No drift - Motor Legs (both separate) Motor Leg (right): (0) No drift Motor Leg (left): (0) No drift - Limb Ataxia Limb Ataxia: (0) Absent - Sensory Sensory: (0) Normal - Best Language Best Language: (0) No aphasia - Dysarthria Dysarthria: (0) Normal - Extinction and Inattention (formally neg Extinction and inattention: (0) No abnormality - Total Score/Results Total Score/Result: 0
--- NOTE | 2023-08-16 14:35 | XRAY Report ---
PROCEDURE: Chest 1 View X-Ray INDICATIONS: Chest Pain TECHNIQUE: One view of the chest was acquired. COMPARISON: CT 08/12/2023 FINDINGS: Surgical changes and devices: Cardiac monitoring device. Sternotomy wires. Lungs and pleura: Mild to moderate perihilar and lower lung opacities. Mediastinum: Normal heart size. Bones and chest wall: Rib fractures are better seen on recent CT. Rib fractures are better seen on r ecent CT. There are degenerative changes. IMPRESSION: Moderate perihilar and lower lung opacities, possibly infectious/inflammatory. Superimposed atelectas is is likely. Consider future imaging surveillance to assess for resolution. Limited single view radiograph. Reviewed by: Dean Huynh MD on 08/16/2023 2:33 PM PST Approved by: Dean Huynh MD on 08/16/2023 2:33 PM PST Station ID: [id number]
[2023-08-16] MEDS ORDERED: cefTRIAXone 1 GM VIAL IVP STA (14:55)
[2023-08-16] MEDS ORDERED: AZITHROMYCIN INJ 500 MG in SODIUM CHLORIDE 0.9% 250 ML IV STA (14:55)
--- NOTE | 2023-08-16 17:46 | CT Report ---
PROCEDURE: CT Angio Head/Neck INDICATIONS: tia like symptoms; off balance TECHNIQUE: Helical axial CT of the head and neck was obtained during the arterial phase of a intrave nous contrast injection utilizing an angiographic protocol. Multiplanar traditional and MIP reformat s were also obtained. COMPLIANCE STATEMENTS: Any estimate of proximal ICA stenosis was calculated using NASCET guidelines. Dose reduction techniques included either automated exposure control or adjustment of exposure jennifer eters. COMPARISON: None. FINDINGS: Cerebral CT Angiogram: Internal carotid arteries: Atherosclerotic vascular calcification cavernous segments of both internal carotid arteries present without significant stenosis. Anterior cerebral arteries: Unremarkable. No significant stenosis. No occlusion. No aneurysm. Middle cerebral arteries: Unremarkable. No significant stenosis. No occlusion. No aneurysm. Posterior cerebral arteries: Hypoplasia/aplasia of the left P1 ENGINEERING PROGRAMMER noted. The P2 segment is supplied by a widely patent posterior communicating artery. Remainder of the distal vasculature unremarkable. Basilar artery: Unremarkable. No significant stenosis. No occlusion. No aneurysm. Vertebral arteries: Unremarkable as visualized. Dural venous sinuses: Unremarkable given phase of enhancement. Other: Arterial phase appearance of the brain parenchyma is unremarkable. Neck CT Angiogram: Internal carotid arteries: Atherosclerotic calcified and noncalcified plaque in both proximal ICA wit hout stenosis utilizing NASCET criteria. Trace right ICA is medialized in the hypopharynx Common carotid arteries: Unremarkable. No significant stenosis. No dissection or occlusion. External carotid arteries: Unremarkable. No occlusion. Vertebral arteries: Unremarkable. No significant stenosis. No dissection or occlusion. Aortic Arch and Mediastinum: Partially visualized aortic arch unremarkable without evidence of aneury sm. Origins of the great vessels unremarkable. Other: Arterial phase soft tissues of the neck are unremarkable. Groundglass density in both lung api zac as well as moderate right pleural effusion consistent with pulmonary edema IMPRESSION: Atherosclerotic plaque without evidence of significant stenosis, large vessel occlusion or aneurysm i n the head and neck Bilateral pulmonary groundglass density in the apices as well as moderate right pleural effusion may reflect pulmonary edema Reviewed by: Pete Hummel MD on 08/16/2023 4:45 PM [place] Approved by: Pete Hummel MD on 08/16/2023 4:45 PM AKST Station ID: [id number]
[2023-08-16] MEDS ORDERED: iohexoL-300 100 ML VIAL IVP ONE (18:24)
[2023-08-16 20:09] VITALS: BP 137/68; O2SAT 100
== END 2023-08-16 20:01 | disposition home or self-care (01) ==
LOC: EDUNIT# → ED 13:43
DX: I48.91 Unspecified atrial fibrillation (principal); J18.9 Pneumonia, unspecified organism; R42 Dizziness and giddiness; S22.31XD Fracture of one rib, right side, subsequent encounter for fracture with routine healing; W19.XXXD Unspecified fall, subsequent encounter; Z95.0 Presence of cardiac pacemaker
CPT/HCPCS: 36415; 70496; 70498; 71045; 80053; 83690; 85025; 87040; 93005; 93306; 96365; 96375; 99284; Q9967

== ENCOUNTER 2023-09-16 09:29 | Outpatient (CLI) | payer MEDICARE, OTHER ==
--- NOTE | 2023-09-16 12:25 | CT Report ---
PROCEDURE: CT brain without contrast INDICATIONS: 06/04/2023, MRI brain 03/22/2016 TECHNIQUE: Helical axial CT of the brain was obtained without contrast and reformatted in multiple p lanes. Radiation dose reduction was achieved using automated exposure control or adjustment of mA and /or kV according to patient size. COMPARISON: None FINDINGS: CSF spaces: Ventriculomegaly out of proportion to sulcal widening. No transependymal migration of CS F change from Brain: No midline shift. No intracranial masses or hemorrhage. Gonzalez-white matter interface is norm al. Skull and face: Calvarium and skull base are unremarkable without suspicious lesion. Sinuses: Visualized sinuses and mastoids are clear. IMPRESSION: Atrophy and multifocal white matter chronic ischemic change. No intracranial hemorrhage. Moderate ventriculomegaly stable from 2016 probably reflects centralized atrophy. Reviewed by: Pete Hummel MD on 09/16/2023 11:24 AM [facility] Approved by: Pete Hummel MD on 09/16/2023 11:24 AM [facility] Station ID: [id number]
== END 2023-09-16 09:30 | disposition home or self-care (01) ==
LOC: DI 09:29
PROVIDERS: ATTEND Nurse Practitioner Family
DX: R42 Dizziness and giddiness (principal); G31.89 Other specified degenerative diseases of nervous system; I67.82 Cerebral ischemia

== ENCOUNTER 2023-10-05 11:22 | Emergency (ER) | payer MEDICARE, OTHER ==
[2023-10-05 13:42] VITALS: O2SAT 99
--- NOTE | 2023-10-05 15:42 | XRAY Report ---
PROCEDURE: Pelvis 1-2V INDICATIONS: fall/pain L posterior TECHNIQUE: 1 view(s) of the pelvis acquired. COMPARISON: None. FINDINGS: Bones: No fractures or dislocations. No suspicious bony lesions. Degenerative changes of both hip s. Soft tissues: Visualized bowel gas pattern is normal. No suspicious soft tissue calcifications. IMPRESSION: Degenerative changes of both hips. No acute bony abnormality. Reviewed by: Edis Freedman MD on 10/05/2023 3:41 PM PST Approved by: Edis Freedman MD on 10/05/2023 3:41 PM PST Station ID: [id number]
--- NOTE | 2023-10-05 15:47 | XRAY Report ---
PROCEDURE: Ribs w/PA Chest 3+V LT INDICATIONS: fall/pain TECHNIQUE: 3 views of the left ribs were acquired, along with a single view chest. COMPARISON: None. FINDINGS: Surgical changes and devices: Status post median sternotomy. Bones and chest wall: Perihilar and left lower lobe airspace opacities are unchanged likely chronic. No pneumothorax or pleural effusion. Lungs and pleura: No pleural effusions or pneumothorax. Lungs appear clear. Mediastinum: Mediastinal contours appear normal. Heart size is normal. IMPRESSION: No displaced rib fracture or pneumothorax. No acute or significant interval change. Reviewed by: Edis Freedman MD on 10/05/2023 3:46 PM PST Approved by: Edis Freedman MD on 10/05/2023 3:46 PM PST Station ID: [id number]
--- NOTE | 2023-10-05 16:13 | ED Physician Documentation ---
History of Present Illness - Stated complaint Stated Complaint: FALL,BACK PX - Chief complaint Chief Complaint: Trauma Ch/Bk - History obtained from History obtained from: Patient - Additonal information Additional information: The pt comes to the ED with CC of L posterior rib pain and L posterior pelvic pain after falling against a windowsill a few days ago. The pt denies hitting his head or losing consciousness. He states that he did not fall all the way to the ground. He has been hurting in the above areas since, and just wants to get checked out. No difficulty breathing. No cough or fever. No hematuria. PD PAST MEDICAL HISTORY - Past Medical History Past Medical History: Yes Cardiovascular: Coronary artery disease, Arrhythmia Respiratory: None Neuro: CVA Endocrine/Autoimmune: None GI: None : None HEENT: Chronic vision loss Psych: Anxiety Musculoskeletal: Osteoarthritis Derm: None - Past Surgical History Past Surgical History: Yes General: Appendectomy, Other Cardiovascular: CABG, Pacemaker HEENT: Tonsil/Adenoidectomy Derm: Skin cancer surgery - Present Medications Home Medications: Ambulatory Orders Medication Instructions Recorded Confirmed Aspirin 0.5 tab PO DAILY 12/17/14 08/16/23 Cholecalciferol (Vitamin D3) 1,000 unit PO DAILY 12/17/14 08/16/23 [Vitamin D] Clopidogrel [Plavix] 75 mg PO DAILY 12/17/14 08/16/23 Simvastatin 40 mg PO DAILY 12/17/14 08/16/23 Amox/Clav 875/125 [Augmentin] 1 each PO Q12H #20 tablet 08/16/23 Azithromycin [Zithromax] 0 mg PO DAILY #6 tablet 08/16/23 HYDROcod/ACETAM 5/325 [Fowler 5/325] 1 - 2 tablet PO Q6H PRN #14 tablet 10/05/23 - Allergies Allergies/Adverse Reactions: Allergies Allergy/AdvReac Type Severity Reaction Status Date / Time No Known Drug Allergies Allergy Verified 10/05/23 11:44 - Social History Does the pt smoke?: No Smoking Status: Never smoker Does the pt drink ETOH?: Yes Does the pt have substance abuse?: No - Immunizations Immunizations are current?: Yes - POLST Patient has POLST: No PD ED PE NORMAL - Vitals Vital signs reviewed: Yes - General General: Alert and oriented X 3, No acute distress, Well developed/nourished - HEENT HEENT: Atraumatic, PERRL, EOMI, Moist mucous membranes (Well-appearing, sitting up, conversant) - Neck Neck: Supple, no meningeal sign, No bony TTP - Cardiac Cardiac: RRR, No murmur - Respiratory Respiratory: No respiratory distress, Clear bilaterally - Abdomen Abdomen: Soft, Non tender, Non distended - Back Back: No CVA TTP, No spinal TTP, Other (TTP L low back, posterior aspect of iliac wing. No contusion or bony step-off) - Derm Derm: Normal color, Warm and dry, No rash - Extremities Extremities: No deformity, No edema - Neuro Neuro: Alert and oriented X 3, patrol mother 2-12 intact, No motor deficit, No sensory deficit, Normal speech - Psych Psych: Normal mood, Normal affect - Free text exam Free text exam: TTP L posterior ribs, around rib 10 level. No step-off or crepitus. Results - Vitals Vitals: Oxygen O2 Source [With Activity] Room air O2 Source [Without Activity] Room air O2 Source Room air - Rads (name of study) XR pelvis Relevant Findings:: Final report received, See rad report (neg) XR L ribs/chest Relevant Findings:: Final report received, See rad report (neg) PD Medical Decision Making - ED course Complexity details: reviewed results, re-evaluated patient, considered differential, d/w patient ED course: The pt declined symptomatic treatment in the ED. X-rays of ribs and pelvis were negative. We have discussed symptomatic management at home and the need for follow-up if sx last more than a few weeks. Departure - Departure Disposition: 01 Home, Self Care Clinical Impression: Fall Qualifiers: Encounter type: initial encounter Qualified Code(s): W19.XXXA - Unspecified fall, initial encounter Back pain Qualifiers: Back pain location: low back pain Chronicity: acute Back pain laterality: left Sciatica presence: without sciatica Qualified Code(s): M54.50 - Low back pain, unspecified Condition: Stable Instructions: ED Neck Back Pain General Prescriptions: HYDROcod/ACETAM 5/325 [Fowler 5/325] 1 - 2 tablet PO Q6H PRN #14 tablet PRN Reason: Pain Comments: Your x-rays do not show any fractures. You most likely have bruised and strained your back in the course of the fall and perhaps previous falls as well. You may take pain medication as needed, though you will need to balance this with your propensity for falls. Your prescription for pain medication has been electronically transmitted to the [facility] in [place], your pharmacy of choice on record. Please follow-up with your primary doctor as needed. Forms: PCP List Discharge Date/Time: 10/05/23 16:50
[2023-10-05 16:41] VITALS: BP 142/91
== END 2023-10-05 16:50 | disposition home or self-care (01) ==
LOC: ED 11:22
DX: M54.50 Low back pain, unspecified (principal); W22.8XXA Striking against or struck by other objects, initial encounter; W19.XXXA Unspecified fall, initial encounter
CPT/HCPCS: 99283; 99284